=== PATIENT | female | born 1975 | race Caucasian/White ===

== ENCOUNTER → 2017-11-19 14:25 | Outpatient (REF) | payer OTHER, SELFPAY ==
[2017-11-19 18:38] LABS: Basophils # 0.1 K/mm3 (0-0.2); Basophils % 0.9 % (0.1-2.0); Eosinophils # 0.1 K/mm3 (0.0-0.4); Hematocrit 34.7 % (37.0-47.0); Lymphocytes # 1.8 K/mm3 (0.7-4.5); Lymphocytes % 30.2 K/mm3 (10-50); Mean Corpuscular Hemoglobin 21.9 pg (27.0-31.2); Mean Corpuscular Volume 75.5 fl (81-99); Mean Platelet Volume 7.7 fl (7.4-10.4); Monocytes # 0.3 K/mm3 (0.1-1.0); Monocytes % 4.5 % (1.7-9.3); Neutrophils # 3.7 K/mm3 (1.8-7.8); Neutrophils % 62.5 % (37.0-80.0); Platelet Count 392 K/mm3 (142-424); Red Blood Count 4.59 M/mm3 (4.20-5.40); Red Cell Distribution Width 15.9 % (11.5-17.5); White Blood Count 5.9 K/mm3 (4.8-10.8)
[2017-11-19 19:21] LABS: Alanine Aminotransferase 16 U/L (12-78); Albumin Level 3.5 gm/dL (3.4-5.0); Alkaline Phosphatase 100 U/L (46-116); Anion Gap 5.4 mEq/L (5-15); Aspartate Amino Transferase 12 U/L (15-37); Blood Urea Nitrogen 10 mg/dL (7-18); Calcium 8.9 mg/dL (8.5-10.1); Carbon Dioxide 27 mmol/L (21.0-32.0); Chloride 104 mmol/L (98-107); Chol/HDL Ratio 5.4 (1-3.5); Cholesterol 241 mg/dL (140-200); Creatinine,Serum 0.67 mg/dL (0.55-1.02); Estimated Glomerular Filt Rate 97 ml/min (>60); GFR (African American) 117 ML/MIN (>60); Globulin 3.4 gm/dl (1.3-3.2); Glucose 101 mg/dL (74-106); HDL Cholesterol 45 mg/dL (29-89); LDL Cholesterol 175 mg/dL (0-130); Potassium 4.4 mmoL/L (3.5-5.1); Sodium 132 mmol/L (136-145); T4 (Thyroxine) 8.2 ug/dl (4.7-13.3); Thyroid Stimulating Hormone 0.97 uIU/ml (0.358-3.740); Total Protein,Serum 6.9 gm/dL (6.4-8.2); Triglycerides 107 mg/dL (30-200); VLDL Cholesterol 21 mg/dL (0-40)
[2017-11-21 09:33] LABS: Vitamin B12 397 pg/mL (232-1245); Vitamin D 25 Hydroxy 16.8 ng/mL (30.0-100.0)
== END ==
LOC: LAB 14:25
PROVIDERS: Visit Provider Physician Assistant
DX: R53.83 Other fatigue (principal)
CPT/HCPCS: 80053; 80061; 82607; 82652; 84436; 84443; 85025

== ENCOUNTER → 2018-01-13 14:03 | Outpatient (REF) | payer OTHER, SELFPAY | LOC: LAB 14:03 | PROVIDERS: Visit Provider Nurse Practitioner Family | DX: N39.0 Urinary tract infection, site not specified (principal) | CPT/HCPCS: 87086 ==

== ENCOUNTER 2018-02-21 06:51 | Day surgery (SDC) | payer OTHER, SELFPAY ==
[2018-02-20 15:23] VITALS: BMI 28.7
[2018-02-21 07:28] VITALS: BP 129/73; PULSE 92; RESP 20; TEMP 36.6; O2SAT 98
[2018-02-21 07:37] LABS: Basophils % 0.7 % (0.1-2.0); Eosinophils # 0.2 K/mm3 (0.0-0.4); Eosinophils % 3.8 % (0.1-12.0); Lymphocytes # 1.3 K/mm3 (0.7-4.5); Lymphocytes % 31.1 K/mm3 (10-50); Mean Corpuscular HGB Conc 27.9 g/dL (31.8-35.4); Mean Corpuscular Hemoglobin 20.2 pg (27.0-31.2); Mean Corpuscular Volume 72.3 fl (81-99); Mean Platelet Volume 7.5 fl (7.4-10.4); Monocytes # 0.2 K/mm3 (0.1-1.0); Monocytes % 5.1 % (1.7-9.3); Neutrophils # 2.5 K/mm3 (1.8-7.8); Neutrophils % 59.3 % (37.0-80.0); Platelet Count 300 K/mm3 (142-424); White Blood Count 4.1 K/mm3 (4.8-10.8)
[2018-02-21 07:37] LABS: Urine Pregnancy, HCG Qual. Negative (Negative)
--- NOTE | 2018-02-21 07:38 | PC.NURSE ---
pt surgery cancelled by Dr Dinh due to pt not having proper test run prior to today. pt had echo and stress test ordered by Dr Locke and did not get the test done. will reschedule after pt has test run. removed iv and applied 2x2 s and coban to site. pt stable. labs drawn during iv stick sent to lab
[2018-02-21 07:41] LABS: Anion Gap 10.8 mEq/L (5-15); Blood Urea Nitrogen 10 mg/dL (7-18); Calcium 8.2 mg/dL (8.5-10.1); Carbon Dioxide 25 mmol/L (21.0-32.0); Chloride 105 mmol/L (98-107); Creatinine Clearance Estimated 155 mL/min (0-300); Creatinine,Serum 0.64 mg/dL (0.55-1.02); Estimated Glomerular Filt Rate 102 ml/min (>60); GFR (African American) 123 ML/MIN (>60); Glucose 111 mg/dL (74-106); Potassium 3.8 mmoL/L (3.5-5.1); Sodium 137 mmol/L (136-145)
[2018-02-21 07:54] LABS: Hematocrit 32.6 % (37.0-47.0); Hemoglobin 9.1 g/dL (12.2-16.2)
== END 2018-02-21 08:40 | disposition home or self-care (01) ==
PROVIDERS: Family Provider Physician Assistant; PCP Physician Assistant; Visit Provider Surgery
PROC: 0WQF4ZZ Repair Abdominal Wall, Percutaneous Endoscopic Approach (ICD-10-PCS; principal; 2018-02-21 08:30)
DX: Z53.8 Procedure and treatment not carried out for other reasons (principal)
CPT/HCPCS: 80048; 81025; 85025

== ENCOUNTER 2020-06-07 18:52 | Observation (INO) | payer OTHER, SELFPAY ==
[2020-06-07 18:57] VITALS: BP 133/85; PULSE 86; RESP 15; TEMP 36.9; O2SAT 98; BMI 22.0
--- NOTE | 2020-06-07 19:08 | CT_ITS ---
PROCEDURE: CT ABDOMEN PELVIS WO CON CLINICAL INDICATION: nausea vomiting COMPARISON: CT ABDPELW/O CT ABD PELVIS W/O CONTRAST from 02/05/2017 TECHNIQUE: Axial images obtained with sagittal and coronal reformats. All CT scans at the facility use one or more dose reduction, viz: automated exposure control, ma/kV adjustment per patient size (including targeted exams where dose is matched to indication, i.e. head), or iterative reconstruction technique. FINDINGS: LOWER THORAX: There are atelectatic changes in the left lung base medially. There may be a small hiatal hernia. ABDOMEN & PELVIS: The liver, spleen, adrenal glands, pancreas, and kidneys have an unremarkable unenhanced appearance. No evidence of appendicitis. No intestinal obstruction or free air. Trace amount fluid is present in the pelvis. There is no intestinal obstruction or free air. There is mild thickening of the colon. No obvious pelvic mass. No acute bony findings. IMPRESSION: 1. Mild thickening of the colon throughout which could be due to mild colitis versus nondistention. 2. Mild left basilar atelectasis with possible small hiatal hernia Dictated by: Leonard Goodman MD 06/08/2020 06:07 Leonard Goodman MD in [place] 06/08/2020 06:07
--- NOTE | 2020-06-07 19:19 | HMH.EDABDPAI ---
ED Disposition Condition on Discharge: Good - Critical Care Critical Care Time: No <EricksonizabelaChevy - Last Filed: 06/07/20 19:40> <Jason Frazier - Last Filed: 06/07/20 22:55> Clinical Impression: Dyspepsia Nausea & vomiting Qualifiers: Vomiting type: unspecified Vomiting Intractability: non-intractable Qualified Code(s): R11.2 - Nausea with vomiting, unspecified Abdominal pain Qualifiers: Abdominal location: epigastric Qualified Code(s): R10.13 - Epigastric pain Disposition: Admitted as Observation Attestation: On 06/07/20, the high probability of a clinically significant, sudden or life threatening deterioration of the following system(s) required my full and direct attention, intervention and personal management. The time I documented below is in addition to time spent performing reported procedures but includes the following listed in this critical care notation. Medical Decision Making - Medical Records Medical records reviewed: Yes: I reviewed the patient's medical records. - Dilan Inquiry Pt receiving controlled substance: No - Lab Data Result diagrams: 06/07/20 18:50 06/07/20 18:50 - Reevaluation(s) Time: 19:41 <Chevy Owen - Last Filed: 06/07/20 19:40> - Lab Data Lab results reviewed: Yes: I reviewed the patient's lab results. Result diagrams: 06/07/20 18:50 06/07/20 18:50 - CT Data CT Scan: Abdomen, Pelvis Time Received: 22:[address] Reviewed: Yes: I have viewed the radiologist's interpretation Preliminary Findings: Abnormal (see report ) - Physician Consults Physician Consulted: anders Reason -: Admission <Jason Frazier - Last Filed: 06/07/20 22:55> Vital Signs: 06/07/20 18:57 06/07/20 21:32 Temperature 98.4 F 98.3 F Temperature Source Oral Oral Pulse Rate [Right Radial] 86 90 Respiratory Rate 15 Blood Pressure [Right Arm] 133/85 Blood Pressure Mean [Right Arm] 101 02 Sat by Pulse Oximetry 98 97 Oxygen Delivery Method Room Air Room Air - Lab Data Lab Results 06/07/20 18:50: WBC 9.2, RBC 4.47, Hgb 13.6, Hct 42.5, MCV 95.1, MCH 30.5, MCHC 32.0, RDW 13.8, Plt Count 287, MPV 7.3 L, Neut % (Auto) 87.1 H, Lymph % (Auto) 8.2 L, [place] % (Auto) 4.3, Eos % (Auto) 0.4, Baso % (Auto) 0.1, Neut # (Auto) 8.0 H, Lymph # (Auto) 0.8, [place] # (Auto) 0.4, Eos # (Auto) 0.0, Baso # (Auto) 0.0, Total Counted 100, Neutrophils % (Manual) 90 H, Lymphocytes % (Manual) 7 L, Monocytes % (Manual) 3, Platelet Estimate Normal, RBC Morphology Normal 06/07/20 18:50: Sodium 139, Potassium 3.6, Chloride 104, Carbon Dioxide 28, Anion Gap 10.6, BUN 12, Creatinine 0.60, Estimated Creat Clear 124, Estimated GFR 109, Est GFR ( Amer) 131, Glucose 134 H, Calcium 9.1, Total Bilirubin 0.4, AST 30, ALT 20, Alkaline Phosphatase 66, Total Protein 7.0, Albumin 4.0, Globulin 3.0, Albumin/Globulin Ratio 1.3, Lipase 30 06/07/20 18:50: ESR 17 06/07/20 18:50: C-Reactive Protein 2.4 06/07/20 18:50: Amylase 61, Lipase 29 06/07/20 21:42: Urine Color Dark yellow, Urine Appearance Clear, Urine pH 7.0, Ur Specific [place] 1.025, Urine Protein 1+, Urine Glucose (UA) Negative, Urine Ketones 2+, Urine Blood 3+, Urine Nitrate Negative, Urine Bilirubin Negative, Urine Urobilinogen 0.2, Ur Leukocyte Esterase Negative, Urine RBC 20-50, Urine WBC 3-5, Ur Squamous Epith Cells 3-5, Amorphous Sediment 1+, Urine Bacteria 1+, Urine Mucus 1+ 06/07/20 21:42: Urine HCG, Qual Negative Orders (Tests/Meds): ED MEDICATIONS Generic Name Dose Route Start Last Admin Trade Name Freq PRN Reason Stop Dose Admin Sodium Chloride 1,000 mls @ 999 mls/hr 06/07/20 21:30 06/07/20 21:30 Sod Chlor 0.9% 1000ml Bag IV 06/07/20 22:30 999 mls/hr .Q1H1M ARUN Administration Sodium Chloride 8 ml 06/07/20 21:49 Sodium Chloride 0.9% 10ml Vial IV 07/07/20 21:48 NEEDED PRN dilute pepcid Discontinued Medications Generic Name Dose Route Start Last Admin Trade Name Freq PRN Reason Stop Dose Admin Fam
[2020-06-07 19:26] LABS: Alanine Aminotransferase 20 U/L (12-78); Albumin/Globulin Ratio 1.3 (1.1-1.8); Alkaline Phosphatase 66 U/L (38-126); Anion Gap 10.6 mEq/L (5-15); Aspartate Amino Transferase 30 U/L (14-36); Bilirubin,Total 0.4 mg/dl (0.2-1.3); Blood Urea Nitrogen 12 mg/dl (7-17); Calcium 9.1 mg/dl (8.4-10.2); Carbon Dioxide 28 mmol/L (22.0-30.0); Chloride 104 mmol/L (98-107); Creatinine Clearance Estimated 124 mL/min (50-200); Estimated Glomerular Filt Rate 109 ml/min (>60); GFR (African American) 131 ML/MIN (>60); Glucose 134 mg/dl (74-100); Lipase 30 U/L (23-300); Potassium 3.6 mmoL/L (3.5-5.1); Sodium 139 mmol/L (136-145)
[2020-06-07 19:31] LABS: Basophils % 0.1 % (0.1-2.0); Eosinophils % 0.4 % (0.1-12.0); Hematocrit 42.5 % (37.0-47.0); Hemoglobin 13.6 g/dL (12.2-16.2); Lymphocytes # 0.8 K/mm3 (0.7-4.5); Lymphocytes % 8.2 % (10-50); Mean Corpuscular Hemoglobin 30.5 pg (27.0-31.2); Mean Corpuscular Volume 95.1 fl (81-99); Mean Platelet Volume 7.3 fl (7.4-10.4); Monocytes # 0.4 K/mm3 (0.1-1.0); Monocytes % 4.3 % (1.7-9.3); Neutrophils % 87.1 % (37.0-80.0); Platelet Count 287 K/mm3 (142-424); Red Blood Count 4.47 M/mm3 (4.20-5.40); Red Cell Distribution Width 13.8 % (11.5-17.5); White Blood Count 9.2 K/mm3 (4.8-10.8)
[2020-06-07 19:37] LABS: MANUAL DIFFERENTIAL MANUAL DIFFERENTIAL (MANUAL DIFF)
[2020-06-07 19:49] LABS: Lymphocytes % 7 % (10-50); Monocytes % 3 % (2-9); Neutrophils % 90 % (42-76); Platelet Estimate Normal; RBC Morphology Normal; Total Cells Counted 100
[2020-06-07 21:32] VITALS: PULSE 90; TEMP 36.8; O2SAT 97
[2020-06-07 21:39] LABS: C-Reactive Protein 2.4 mg/L (0-4)
[2020-06-07 21:44] LABS: Microscopic, Urine URINE MICROSCOPIC (MICROSCOPIC)
[2020-06-07 21:48] LABS: Erythrocyte Sedimentation Rate 17 mm/hr (0-20)
[2020-06-07 21:55] LABS: Appearance,Urine CLEAR (Clear); Blood, Urine 3+ (Negative); Glucose,Urine (UA) Negative (Negative); Ketones,Urine 2+ (Negative); Leukocyte Esterase,Urine Negative (Negative); Nitrate,Urine Negative (Negative); Protein,Urine 1+ (Negative); Specific Gravity, Urine 1.025 (1.005-1.030); Urobilinogen,Urine 0.2 EU/dl (0.2)
[2020-06-07 21:57] LABS: Bilirubin,Urine Negative (Negative); Color,Urine Dark Yellow (Yellow); Urine Pregnancy, HCG Qual. Negative (Negative)
[2020-06-07 22:01] LABS: Amorphous Sediment,Urine 1+ /lpf; Bacteria,Urine 1+ /lpf; Mucus,Urine 1+ /lpf; RBC,Urine 20-50 #/hpf (0-3)
--- NOTE | 2020-06-07 22:04 | PC.NURSE ---
pt mother and sister called to talk to pt. pt stated she would call them later and that she didnt feel like talking at the moment.
[2020-06-07 22:05] LABS: Amylase 61 U/L (30-110); Lipase 29 U/L (23-300)
--- NOTE | 2020-06-07 22:32 | PC.NURSE ---
Dr Frazier speaking with Dr Willams for admission
[2020-06-07 23:06] LABS: Coronavirus 19 IgG Antibody Negative (Negative); Coronavirus 19 IgM Antibody Negative (Negative)
[2020-06-07 23:30] VITALS: BP 141/99; PULSE 92; RESP 16; O2SAT 94
--- NOTE | 2020-06-08 00:03 | PC.NURSE ---
attempted to call report to MICHELINE Watson
--- NOTE | 2020-06-08 00:09 | PC.NURSE ---
report called to MICHELINE Dean
--- NOTE | 2020-06-08 00:17 | PC.NURSE ---
PT ARRIVED TO THE FLOOR VIA W/C FROM ER W/STAFF AT 0017
[2020-06-08 00:20] VITALS: BP 136/89; PULSE 89; RESP 18; TEMP 36.9; O2SAT 96
[2020-06-08 00:25] VITALS: BP 137/86; PULSE 90; RESP 16; TEMP 36.7; O2SAT 94
--- NOTE | 2020-06-08 00:47 | PC.NURSE ---
Pt noted very lethargic upon arriving to unit. Pt alert and oriented x4. Pt noted to keep falling asleep when asked questions. Will attempt to complete admission in am when pt able to answer questions appropriately.
[2020-06-08 00:49] VITALS: BMI 23.8
[2020-06-08 03:51] VITALS: BP 134/84; PULSE 80; RESP 20; TEMP 36.7; O2SAT 96
--- NOTE | 2020-06-08 04:42 | PC.NURSE ---
Pt is alert and oriented x4. Pt has rested well with eyes closed this shift. Pt noted to be very lethargic, answers questions appropriately when woken but immediately falls back to sleep. When pt is woken up for care, she states she is nauseous and is very sick . She also states she just needs phenergan . When this RN attempts to ask further questions pt quickly goes back to sleep. Pt denies nausea when resting with eyes closed. Administered Zofran x1 per MAR for c/o nausea. Upon reassessment pt noted resting with eyes closed with no further complaints. Abdomen tender upon palpation. Hypoactive bowel sounds noted in all 4 quads. Pt has not yet voided or had a BM since arriving to the unit from ER. This RN asked pt is she felt the urge to void, pt denies. Bilateral lungs noted clear t/o. Tolerates RA well with no c/o SOA. Bilateral hand fish tender noted equal and strong. Cap refill < 3 seconds. Refused TEDS. VSS. Remains NPO. Call light within reach. Remains safe. Will continue to monitor.
[2020-06-08 05:00] VITALS: BMI 23.0
[2020-06-08 07:22] LABS: Basophils % 0.1 % (0.1-2.0); Eosinophils % 0.1 % (0.1-12.0); Hemoglobin 13.5 g/dL (12.2-16.2); Lymphocytes # 0.5 K/mm3 (0.7-4.5); Lymphocytes % 5.9 % (10-50); Mean Corpuscular HGB Conc 32.1 g/dL (31.8-35.4); Mean Corpuscular Hemoglobin 30.5 pg (27.0-31.2); Mean Corpuscular Volume 95.1 fl (81-99); Mean Platelet Volume 7.4 fl (7.4-10.4); Monocytes # 0.2 K/mm3 (0.1-1.0); Monocytes % 2.9 % (1.7-9.3); Neutrophils # 7.7 K/mm3 (1.8-7.8); Platelet Count 274 K/mm3 (142-424); Red Blood Count 4.42 M/mm3 (4.20-5.40); Red Cell Distribution Width 14.1 % (11.5-17.5); White Blood Count 8.5 K/mm3 (4.8-10.8)
[2020-06-08 07:24] LABS: Chloride 108 mmol/L (98-107); Potassium 3.6 mmoL/L (3.5-5.1); Sodium 139 mmol/L (136-145)
[2020-06-08 07:27] LABS: Anion Gap 11.6 mEq/L (5-15); Blood Urea Nitrogen 14 mg/dl (7-17); Carbon Dioxide 23 mmol/L (22.0-30.0); Creatinine Clearance Estimated 112 mL/min (50-200); Estimated Glomerular Filt Rate 91 ml/min (>60); GFR (African American) 110 ML/MIN (>60)
[2020-06-08 07:28] LABS: Calcium 8.6 mg/dl (8.4-10.2); Glucose 150 mg/dl (74-100); MANUAL DIFFERENTIAL MANUAL DIFFERENTIAL (MANUAL DIFF); Magnesium 1.6 mg/dl (1.6-2.3)
--- NOTE | 2020-06-08 07:28 | HMH.PHAVTE ---
[facility] Pharmacy VTE Monitoring - Patient Demographics Admission date: 06/07/20 Report Date: 06/08/20 Time: 07:28 Allergies/Adverse Reactions: Patient Allergies amoxicillin Allergy (Intermediate, Verified 11/10/19 15:08) I-RASH azithromycin Allergy (Intermediate, Verified 11/10/19 15:08) I-RASH doxycycline Allergy (Intermediate, Verified 11/10/19 15:08) I-RASH Penicillins Allergy (Intermediate, Verified 11/10/19 15:08) I-RASH codeine [CODEINE] Allergy (Unknown, Verified 11/10/19 15:08) Height: 1.73 m Weight: 68.946 kg Patient Problems: Current Active Problems (Last Updated 11/25/17 @ 13:13 by HÉCTOR Berry) Dyspepsia (Acute) Nausea & vomiting (Acute) Abdominal pain (Acute) - VTE Risk Labs: VTE Related Lab Results Hgb 13.5 g/dL (12.2-16.2) 06/08/20 06:25 Hct 42.0 % (37.0-47.0) 06/08/20 06:25 Plt Count 274 K/mm3 (142-424) 06/08/20 06:25 BUN 14 mg/dl (7-17) 06/08/20 06:25 Creatinine 0.70 mg/dl (0.52-1.04) 06/08/20 06:25 Estimated Creat Clear 112 mL/min (50-200) 06/08/20 06:25 Was VTE Risk Assessment Performed: Yes VTE Score: 3 VTE Risk Level: Low Risk - Prophylaxis VTE Prophylaxis Ordered?: Yes Types of VTE Prophylaxis: TEDS Knee High Location of Applied Device: Bilateral Lower Extremeties
[2020-06-08 08:00] VITALS: BP 140/74; PULSE 84; RESP 16; TEMP 36.8; O2SAT 98
--- NOTE | 2020-06-08 08:00 | HMH.PHAINT ---
MEDICATION RECONCILIATION COMPLETED ON PATIENT USING EXTERNAL FILL HISTORY FROM PHARMACY. -FARIHA BRAVO, CLAUDED
[2020-06-08 08:43] LABS: Lymphocytes % 5 % (10-50); Neutrophils % 95 % (42-76); Platelet Estimate Normal; RBC Morphology Normal; Total Cells Counted 100
--- NOTE | 2020-06-08 08:54 | HMH.HPDC ---
General - General Admission date:: 06/08/20 Discharge date: 06/08/20 *Admission Date: 06/07/20 *Chief complaint: Nausea vomiting and abdominal pain *History of present illness: Ms. Mckeon is a 45-year old patient with a history of documented GERD. She presented to the emergency room with persistent vomiting and retching for the past 3 days. She stated that she was unable to keep food down. She denied diarrhea. She denied any hematemesis, hematuria, and hematochezia. She denied any upper respiratory symptoms and fever. With evaluation in the emergency room CT of the abdomen revealed mild thickening of the colon throughout possibly due to mild colitis versus nondistention and mild left basilar atelectasis with possible small hiatal hernia. Laboratory data revealed a normal white blood cell count, normal electrolytes and renal function. Liver function studies were also all normal. Amylase was 61 with a lipase of 29. Patient was given IVF bolus, famotidine, Toradol, 125mg of Solu-Medrol, Zofran, Reglan, and promethazine. Initially patient felt better and vomiting had resolved. She had tolerated oral intake, But was then admitted For further evaluation and treatment. [facility] History Medical History: Reports:: Anxiety, Chronic Obstructive Pulmonary Disease (COPD), Depression Denies:: Cancer, Diabetes Mellitus Type 1, Diabetes Mellitus Type 2, Internal Pacemaker, MRSA, Seizures *Have you ever received a pneumonia vaccine?: No *Have you received a flu vaccine this season?: No Other Medical History: Reports: Liver Disease, Other. Denies: Blood Transfusion Reaction Other Surgeries: Yes: , Tubal Ligation, Other. No: Pacemaker Amputation: No Fractures: Yes - *Social History Last grade of school completed: 11th or 12th Smoking Status: Current every day smoker Tobacco Type: cigarettes # Packs/Day (cigarettes): 1 Alcohol Intake: former Alcohol Intake Frequency:: holidays/special occasions only Substance Use Type: denies use *Occupational Status:: unemployed Housing: apartment Household Members: children *Travel in the last 8 weeks: None - Psychiatric History Pschychiatric History:: Reports:: Anxiety, Depression Family Hx:: Coronary Artery Disease, Heart Attack Review of Systems - Constitutional Denies headache(s) - Eyes Denies change in vision - ENT Denies ear pain, Denies sore throat - *Cardiovascular Denies chest pain - *Respiratory Denies cough, Denies shortness of breath - *Gastrointestinal Reports abdominal pain, Reports nausea, Reports vomiting, Denies change in bowel habits, Denies constipation, Denies heartburn - *Genitourinary Denies difficulty urinating - *Musculoskeletal Denies joint pain - *Neurologic Denies headache(s) - Psychiatric Reports anxiety, Reports depression Exam Vital signs and Labs for Last 24 Hours: Temp Pulse Resp BP Pulse Ox 98.1 F 80 20 134/84 96 06/08/20 03:51 06/08/20 03:51 06/08/20 03:51 06/08/20 03:51 06/08/20 03:51 Laboratory Results - last 24 hr 06/07/20 18:50: WBC 9.2, RBC 4.47, Hgb 13.6, Hct 42.5, MCV 95.1, MCH 30.5, MCHC 32.0, RDW 13.8, Plt Count 287, MPV 7.3 L, Neut % (Auto) 87.1 H, Lymph % (Auto) 8.2 L, [place] % (Auto) 4.3, Eos % (Auto) 0.4, Baso % (Auto) 0.1, Neut # (Auto) 8.0 H, Lymph # (Auto) 0.8, [place] # (Auto) 0.4, Eos # (Auto) 0.0, Baso # (Auto) 0.0, Total Counted 100, Neutrophils % (Manual) 90 H, Lymphocytes % (Manual) 7 L, Monocytes % (Manual) 3, Platelet Estimate Normal, RBC Morphology Normal 06/07/20 18:50: Sodium 139, Potassium 3.6, Chloride 104, Carbon Dioxide 28, Anion Gap 10.6, BUN 12, Creatinine 0.60, Estimated Creat Clear 124, Estimated GFR 109, Est GFR ( Amer) 131, Glucose 134 H, Calcium 9.1, Total Bilirubin 0.4, AST 30, ALT 20, Alkaline Phosphatase 66, Total Protein 7.0, Albumin 4.0, Globulin 3.0, Albumin/Globulin Ratio 1.3, Lipase 30 06/07/20 18:50: ESR 17 06/07/20 18:50: C-Reactive Protein 2.4 06/07/20 18:50: A
--- NOTE | 2020-06-08 09:19 | PC.NURSE ---
Pt left ama at 0850.
--- NOTE | 2020-06-08 12:18 | PC.NURSE ---
0849- Dr Willams at bedside assessing patient. Patient states she doesnt want to be admitted any longer and wishes to go home. She states she will not stay to be discharged. She states her ride is already here and waiting for her in the parking lot. Dr Willams explains the importance of continuing to receive medical care for her abdominal pain but patient declined and states she would like to leave against medical advice. AMA paperwork provided and explained to patient, patient signed AMA form, PIV discontinued, educated patient that if she changes her mind and needs medical attention she may return to the hospital at any time. Patient verbalized understanding. Left floor at 0849.
== END 2020-06-08 08:49 | disposition left against medical advice (07) ==
LOC: ER 19:42 → 2ND 22:55
PROVIDERS: Emergency Medicine; Admitting Provider Family Medicine; Emergency Provider Emergency Medicine; PCP Nurse Practitioner Family; Visit Provider Family Medicine
DX: R10.9 Unspecified abdominal pain (principal); R11.2 Nausea with vomiting, unspecified; R45.1 Restlessness and agitation; R10.13 Epigastric pain; Z72.0 Tobacco use; J44.9 Chronic obstructive pulmonary disease, unspecified; Z88.0 Allergy status to penicillin; Z88.1 Allergy status to other antibiotic agents; Z88.5 Allergy status to narcotic agent; Z79.899 Other long term (current) drug therapy
CPT/HCPCS: 36415; 74176; 80048; 80053; 81001; 81025; 82150; 83690; 83735; 85007; 85025; 85651; 86140; 86328; 96365; 96375; 99284; G0378; J2405

== ENCOUNTER 2020-06-09 14:51 | Emergency (ER) | payer OTHER, SELFPAY ==
[2020-06-09 14:52] VITALS: BP 160/95; PULSE 91; RESP 17; TEMP 36.5; O2SAT 100; BMI 22.0
--- NOTE | 2020-06-09 14:53 | XR_ITS ---
PROCEDURE: XR ACUTE ABDOMEN SERIES CLINICAL INDICATION: epigastric pain Epigastric pain with nausea and vomiting COMPARISON: CT CT ABDOMEN PELVIS WO CON from 06/07/2020 FINDINGS: Frontal view of the chest shows no acute finding. Upright and supine views of the abdomen demonstrates a nonspecific bowel gas pattern. There is a mild amount of retained colonic feces in the right colon. No intestinal obstruction or free air. There are multiple pelvic phleboliths. No acute bony findings. Other findings:None. IMPRESSION: No acute findings. Dictated by: Leonard Goodman MD 06/09/2020 16:09 Leonard Goodman MD in [place] 06/09/2020 16:09
--- NOTE | 2020-06-09 14:55 | HMH.EDGENADL ---
ED Disposition Clinical Impression: Gastroenteritis Disposition: Home, Self-Care Condition on Discharge: Good Instructions: DI for Acute Abdomen Additional Instructions: You have been evaluated for abdominal pain, nausea. Please take omeprazole. Use Carafate. Take Phenergan for nausea. Follow-up with your primary care doctor. You should see gastroenterology as an outpatient. Return to the emergency department for any new or worsening pain or other symptoms. Prescriptions: Sucralfate [Carafate 1gm/10mL Susp] 1 gm PO DAILY PRN #10 g PRN Reason: Indigestion Transmission Status: Received by [facility] Omeprazole [Omeprazole 20mg Tab] 20 mg PO DAILY #30 tab Transmission Status: Received by [facility] Promethazine HCl [Phenergan 12.5mg tablet] 12.5 mg PO Q6H PRN #6 tab PRN Reason: Nausea Transmission Status: Received by [facility] Referrals: Elizabeth Bauer [Primary Care Provider] - Time of Disposition: 16:54 - Critical Care Critical Care Time: No Attestation: On 06/09/20, the high probability of a clinically significant, sudden or life threatening deterioration of the following system(s) required my full and direct attention, intervention and personal management. The time I documented below is in addition to time spent performing reported procedures but includes the following listed in this critical care notation. Medical Decision Making - Medical Records Medical records reviewed: Yes: I reviewed the patient's medical records. - Dilan Inquiry Pt receiving controlled substance: No Vital Signs: 06/09/20 14:52 06/09/20 15:41 06/09/20 16:28 Temperature 97.7 F Temperature Source Oral Pulse Rate Pulse Rate [Right Brachial] 91 H 70 76 Respiratory Rate 17 14 Blood Pressure Blood Pressure [Right Arm] 160/95 H 157/85 H 152/95 H Blood Pressure Mean [Right Arm] 116 109 114 Blood Pressure Source [Right Arm] Automatic Cuff Automatic Cuff Automatic Cuff Blood Pressure Position Blood Pressure Position [Right Arm] Sitting Sitting Sitting 02 Sat by Pulse Oximetry 100 100 100 Oxygen Delivery Method Room Air Room Air Room Air 06/09/20 18:09 Temperature 98 F Temperature Source Oral Pulse Rate 87 Pulse Rate [Right Brachial] Respiratory Rate 15 Blood Pressure 115/74 Blood Pressure [Right Arm] Blood Pressure Mean [Right Arm] Blood Pressure Source [Right Arm] Blood Pressure Position Sitting Blood Pressure Position [Right Arm] 02 Sat by Pulse Oximetry Oxygen Delivery Method Room Air - Lab Data Lab Results 06/09/20 14:10: WBC 10.0, RBC 4.85, Hgb 14.1, Hct 45.6, MCV 94.0, MCH 29.1, MCHC 31.0 L, RDW 14.3, Plt Count 284, MPV 7.7, Neut % (Auto) 87.2 H, Lymph % (Auto) 8.4 L, [place] % (Auto) 4.2, Eos % (Auto) 0.0 L, Baso % (Auto) 0.2, Neut # (Auto) 8.7 H, Lymph # (Auto) 0.8, [place] # (Auto) 0.4, Eos # (Auto) 0.0, Baso # (Auto) 0.0, Total Counted 100, Neutrophils % (Manual) 93 H, Lymphocytes % (Manual) 6 L, Monocytes % (Manual) 1 L, Platelet Estimate Normal, RBC Morphology Normal 06/09/20 14:10: Sodium 141, Potassium 3.6, Chloride 106, Carbon Dioxide 26, Anion Gap 12.6, BUN 17, Creatinine 0.80, Estimated Creat Clear 93, Estimated GFR 78, Est GFR ( Amer) 94, Glucose 120 H, Calcium 9.0, Total Bilirubin 0.4, AST 28, ALT 18, Alkaline Phosphatase 57, Total Protein 7.4, Albumin 4.5, Globulin 2.9, Albumin/Globulin Ratio 1.6, Lipase 80 06/09/20 15:06: Lactate 1.3 Result diagrams: 06/09/20 14:10 06/09/20 14:10 Orders (Tests/Meds): ED MEDICATIONS Discontinued Medications Generic Name Dose Route Start Last Admin Trade Name Freq PRN Reason Stop Dose Admin Belladonna Alkaloids 60 ml 06/09/20 14:53 06/09/20 15:05 Gi Cocktail 60ml Udc PO 06/09/20 14:54 60 ml ONCE ONE Administration Promethazine HCl 12.5 mg 06/09/20 14:53 06/09/20 15:04 Promethazine Hcl 25mg/Ml 1ml Vial IV 06/09/20 14:54 12.5 mg ONCE ONE Administration Promethazine HCl 12.5 mg 1
[2020-06-09 15:09] LABS: Basophils % 0.2 % (0.1-2.0); Hematocrit 45.6 % (37.0-47.0); Hemoglobin 14.1 g/dL (12.2-16.2); Lymphocytes # 0.8 K/mm3 (0.7-4.5); Lymphocytes % 8.4 % (10-50); Mean Corpuscular Hemoglobin 29.1 pg (27.0-31.2); Mean Platelet Volume 7.7 fl (7.4-10.4); Monocytes # 0.4 K/mm3 (0.1-1.0); Monocytes % 4.2 % (1.7-9.3); Neutrophils # 8.7 K/mm3 (1.8-7.8); Neutrophils % 87.2 % (37.0-80.0); Platelet Count 284 K/mm3 (142-424); Red Blood Count 4.85 M/mm3 (4.20-5.40); Red Cell Distribution Width 14.3 % (11.5-17.5)
[2020-06-09 15:13] LABS: MANUAL DIFFERENTIAL MANUAL DIFFERENTIAL (MANUAL DIFF)
[2020-06-09 15:14] LABS: Chloride 106 mmol/L (98-107); Potassium 3.6 mmoL/L (3.5-5.1); Sodium 141 mmol/L (136-145)
[2020-06-09 15:16] LABS: Alanine Aminotransferase 18 U/L (12-78); Aspartate Amino Transferase 28 U/L (14-36); Blood Urea Nitrogen 17 mg/dl (7-17); Creatinine Clearance Estimated 93 mL/min (50-200); Estimated Glomerular Filt Rate 78 ml/min (>60); GFR (African American) 94 ML/MIN (>60)
[2020-06-09 15:17] LABS: Albumin Level 4.5 g/dl (3.5-5.0); Albumin/Globulin Ratio 1.6 (1.1-1.8); Alkaline Phosphatase 57 U/L (38-126); Anion Gap 12.6 mEq/L (5-15); Bilirubin,Total 0.4 mg/dl (0.2-1.3); Carbon Dioxide 26 mmol/L (22.0-30.0); Globulin 2.9 g/dL (1.3-3.2); Glucose 120 mg/dl (74-100); Lipase 80 U/L (23-300); Total Protein,Serum 7.4 g/dl (6.3-8.2)
[2020-06-09 15:20] LABS: Lymphocytes % 6 % (10-50); Monocytes % 1 % (2-9); Neutrophils % 93 % (42-76); Platelet Estimate Normal; RBC Morphology Normal; Total Cells Counted 100
[2020-06-09 15:33] LABS: Lactic Acid 1.3 mmol/L (0.7-2.1)
[2020-06-09 15:41] VITALS: BP 157/85; PULSE 70; RESP 14; O2SAT 100
[2020-06-09 16:28] VITALS: BP 152/95; PULSE 76; O2SAT 100
[2020-06-09 18:09] VITALS: BP 115/74; PULSE 87; RESP 15; TEMP 36.6; O2SAT 98
== END 2020-06-09 18:11 | disposition home or self-care (01) ==
PROVIDERS: Emergency Provider Emergency Medicine; PCP Nurse Practitioner Family
DX: R10.12 Left upper quadrant pain (principal); R10.13 Epigastric pain; J44.9 Chronic obstructive pulmonary disease, unspecified; K21.9 Gastro-esophageal reflux disease without esophagitis; E55.9 Vitamin D deficiency, unspecified; Z79.899 Other long term (current) drug therapy; F17.210 Nicotine dependence, cigarettes, uncomplicated; Z88.0 Allergy status to penicillin; F41.8 Other specified anxiety disorders; Z88.5 Allergy status to narcotic agent
CPT/HCPCS: 74021; 80053; 83605; 83690; 85007; 85025; 96365; 96374; 96375; 96376; 99283

== ENCOUNTER 2020-11-16 21:30 | Emergency (ER) | payer OTHER, SELFPAY ==
[2020-11-16 21:41] VITALS: BP 183/78; PULSE 74; RESP 18; TEMP 36.6; O2SAT 98; BMI 22.0
[2020-11-16 22:00] LABS: Microscopic, Urine URINE MICROSCOPIC (MICROSCOPIC)
--- NOTE | 2020-11-16 22:03 | HMH.EDNVD ---
ED Disposition Clinical Impression: Abdominal pain Qualifiers: Abdominal location: generalized Qualified Code(s): R10.84 - Generalized abdominal pain Disposition: Home, Self-Care Condition on Discharge: Good Instructions: DI for Nausea -- Adult Additional Instructions: fluids and see pcp Referrals: Elizabeth Bauer [Primary Care Provider] - - Critical Care Critical Care Time: No Attestation: On 11/16/20, the high probability of a clinically significant, sudden or life threatening deterioration of the following system(s) required my full and direct attention, intervention and personal management. The time I documented below is in addition to time spent performing reported procedures but includes the following listed in this critical care notation. Medical Decision Making - Medical Records Medical records reviewed: Yes: I reviewed the patient's medical records. - Dilan Inquiry Pt receiving controlled substance: No Vital Signs: 11/16/20 21:41 11/16/20 22:15 11/16/20 22:57 Temperature 97.8 F 97.8 F Temperature Source Oral Oral Pulse Rate 75 Pulse Rate [Right Brachial] 74 73 Respiratory Rate 18 18 17 Blood Pressure 163/75 H Blood Pressure [Right Arm] 183/78 H 165/75 H Blood Pressure Mean [Right Arm] 113 105 Blood Pressure Source Automatic Cuff Blood Pressure Source [Right Arm] Automatic Cuff Automatic Cuff Blood Pressure Position Sitting Blood Pressure Position [Right Arm] Sitting 02 Sat by Pulse Oximetry 98 98 Oxygen Delivery Method Room Air Room Air - Lab Data Lab results reviewed: Yes: I reviewed the patient's lab results. Lab Results 11/16/20 21:40: Urine Color Dark yellow, Urine Appearance Cloudy, Urine pH 8.5, Ur Specific [place] 1.015, Urine Protein 1+, Urine Glucose (UA) Negative, Urine Ketones 1+, Urine Blood 2+, Urine Nitrate Negative, Urine Bilirubin Negative, Urine Urobilinogen 0.2, Ur Leukocyte Esterase Trace, Urine RBC 3-5, Urine WBC 3-5, Ur Squamous Epith Cells Tntc, Urine Bacteria 1+, Urine Mucus 1+ 11/16/20 21:40: Urine HCG, Qual Negative 11/16/20 21:40: Urine Opiates Screen Positive H, Urine Methadone Screen Negative, Ur Barbituates Screen Negative, Ur Phencyclidine Scrn Negative, Ur Amphetamines Screen Negative, U Benzodiazepines Scrn Negative, Urine Cocaine Screen Negative, U Marijuana (THC) Screen Negative 11/16/20 21:55: WBC 7.7, RBC 5.00, Hgb 14.6, Hct 44.7, MCV 89.4, MCH 29.2, MCHC 32.7, RDW 15.7, Plt Count 320, MPV 8.1, Neut % (Auto) 85.9 H, Lymph % (Auto) 10.5, [place] % (Auto) 1.8, Eos % (Auto) 1.1, Baso % (Auto) 0.8, Neut # (Auto) 6.6, Lymph # (Auto) 0.8, [place] # (Auto) 0.1, Eos # (Auto) 0.1, Baso # (Auto) 0.1, Total Counted 100, Neutrophils % (Manual) 92 H, Lymphocytes % (Manual) 7 L, Monocytes % (Manual) 1 L, Platelet Estimate Normal, RBC Morphology Normal, ESR 10 11/16/20 21:55: Sodium 138, Potassium 3.6, Chloride 105, Carbon Dioxide 22, Anion Gap 14.6, BUN 14, Creatinine 0.60, Estimated Creat Clear 124, Estimated GFR 109, Est GFR ( Amer) 131, Glucose 174 H, Calcium 9.5, Total Bilirubin 0.6, AST 30, ALT 20, Alkaline Phosphatase 92, C-Reactive Protein 1.9, Total Protein 7.8, Albumin 4.4, Globulin 3.4 H, Albumin/Globulin Ratio 1.3, Amylase 114 H, Lipase 84, Procalcitonin 0.036 Result diagrams: 11/16/20 21:55 11/16/20 21:55 Orders (Tests/Meds): ED MEDICATIONS Generic Name Dose Route Start Last Admin Trade Name Freq PRN Reason Stop Dose Admin Sodium Chloride 1,000 mls @ 999 mls/hr 11/16/20 21:45 11/16/20 21:45 Sod Chlor 0.9% 1000ml Bag IV 11/16/20 22:45 999 mls/hr .Q1H1M ARUN Administration Sodium Chloride 8 ml 11/16/20 22:24 Sodium Chloride 0.9% 10ml Vial IV 12/16/20 22:23 NEEDED PRN dilute pepcid Discontinued Medications Generic Name Dose Route Start Last Admin Trade Name Freq PRN Reason Stop Dose Admin Dicyclomine HCl 10 mg 11/16/20 22:33 11/16/20 22:34 Dicyclomine 20 Mg/2ml Vial IM 11/16/20 22:34 10 mg ONCE
[2020-11-16 22:15] VITALS: BP 165/75; PULSE 73; RESP 18; O2SAT 98
[2020-11-16 22:15] LABS: Basophils # 0.1 K/mm3 (0-0.2); Basophils % 0.8 % (0.1-2.0); Eosinophils # 0.1 K/mm3 (0.0-0.4); Eosinophils % 1.1 % (0.1-12.0); Hematocrit 44.7 % (37.0-47.0); Hemoglobin 14.6 g/dL (12.2-16.2); Lymphocytes # 0.8 K/mm3 (0.7-4.5); Lymphocytes % 10.5 % (10-50); Mean Corpuscular HGB Conc 32.7 g/dL (31.8-35.4); Mean Corpuscular Hemoglobin 29.2 pg (27.0-31.2); Mean Corpuscular Volume 89.4 fl (81-99); Mean Platelet Volume 8.1 fl (7.4-10.4); Monocytes # 0.1 K/mm3 (0.1-1.0); Monocytes % 1.8 % (1.7-9.3); Neutrophils # 6.6 K/mm3 (1.8-7.8); Neutrophils % 85.9 % (37.0-80.0); Platelet Count 320 K/mm3 (142-424); Red Cell Distribution Width 15.7 % (11.5-17.5); White Blood Count 7.7 K/mm3 (4.8-10.8)
[2020-11-16 22:17] LABS: Alanine Aminotransferase 20 U/L (12-78); Albumin Level 4.4 g/dl (3.5-5.0); Albumin/Globulin Ratio 1.3 (1.1-1.8); Alkaline Phosphatase 92 U/L (38-126); Amylase 114 U/L (30-110); Anion Gap 14.6 mEq/L (5-15); Aspartate Amino Transferase 30 U/L (14-36); Bilirubin,Total 0.6 mg/dl (0.2-1.3); Blood Urea Nitrogen 14 mg/dl (7-17); Calcium 9.5 mg/dl (8.4-10.2); Carbon Dioxide 22 mmol/L (22.0-30.0); Chloride 105 mmol/L (98-107); Creatinine Clearance Estimated 124 mL/min (50-200); Estimated Glomerular Filt Rate 109 ml/min (>60); GFR (African American) 131 ML/MIN (>60); Globulin 3.4 g/dL (1.3-3.2); Glucose 174 mg/dl (74-100); Lipase 84 U/L (23-300); Potassium 3.6 mmoL/L (3.5-5.1); Sodium 138 mmol/L (136-145); Total Protein,Serum 7.8 g/dl (6.3-8.2)
[2020-11-16 22:17] LABS: Blood, Urine 2+ (Negative); Glucose,Urine (UA) Negative (Negative); Ketones,Urine 1+ (Negative); Leukocyte Esterase,Urine TRACE (Negative); Nitrate,Urine Negative (Negative); PH,Urine 8.5 (5.0-8.5); Protein,Urine 1+ (Negative); Specific Gravity, Urine 1.015 (1.005-1.030); Urobilinogen,Urine 0.2 EU/dl (0.2)
[2020-11-16 22:22] LABS: C-Reactive Protein 1.9 mg/L (0-4)
[2020-11-16 22:23] LABS: Appearance,Urine Cloudy (Clear); Bilirubin,Urine Negative (Negative); Color,Urine Dark Yellow (Yellow); Urine Pregnancy, HCG Qual. Negative (Negative)
[2020-11-16 22:24] LABS: Bacteria,Urine 1+ /lpf; Mucus,Urine 1+ /lpf; Squamous Epithelial Cell,Urine TNTC #/hpf (0-5)
[2020-11-16 22:26] LABS: MANUAL DIFFERENTIAL MANUAL DIFFERENTIAL (MANUAL DIFF)
[2020-11-16 22:28] LABS: Barbiturates Screen,Urine Negative ng/ml (<200)
[2020-11-16 22:29] LABS: Amphetamine/Metha Screen,Urine Negative ng/ml (<1000); Benzodiazepines Screen,Urine Negative ng/ml (<200)
[2020-11-16 22:30] LABS: Cannabinoid Screen,Urine Negative ng/ml (<50); Cocaine Screen,Urine Negative ng/ml (<300)
[2020-11-16 22:31] LABS: Methadone Screen,Urine Negative ng/ml (<300)
[2020-11-16 22:32] LABS: Opiate Screen,Urine Positive ng/ml (<300); Phencyclidine Screen,Urine Negative ng/ml (<25)
[2020-11-16 22:36] LABS: Procalcitonin 0.036 ng/mL (0.0-2.0)
[2020-11-16 22:41] LABS: Erythrocyte Sedimentation Rate 10 mm/hr (0-20)
--- NOTE | 2020-11-16 22:53 | PC.NURSE ---
called to patient's room. patient wanting to leave. refusing ct. found out patient has her ride en route and is only to get home and refuses to stay.
[2020-11-16 22:57] VITALS: BP 163/75; PULSE 75; RESP 17; TEMP 36.6; O2SAT 99
[2020-11-16 23:16] LABS: Lymphocytes % 7 % (10-50); Monocytes % 1 % (2-9); Neutrophils % 92 % (42-76); Platelet Estimate Normal; RBC Morphology Normal; Total Cells Counted 100
== END 2020-11-16 22:59 | disposition home or self-care (01) ==
PROVIDERS: Emergency Provider Emergency Medicine; PCP Nurse Practitioner Family
DX: R10.84 Generalized abdominal pain (principal); K21.9 Gastro-esophageal reflux disease without esophagitis; J44.9 Chronic obstructive pulmonary disease, unspecified; E55.9 Vitamin D deficiency, unspecified; F41.8 Other specified anxiety disorders; F17.210 Nicotine dependence, cigarettes, uncomplicated; Z88.0 Allergy status to penicillin; Z88.5 Allergy status to narcotic agent
CPT/HCPCS: 80053; 80305; 81001; 81025; 82150; 83690; 84145; 85007; 85025; 85651; 86140; 96365; 96375; 99283; J2405

== ENCOUNTER → 2020-12-12 14:36 | Outpatient (CLI) | payer OTHER, SELFPAY | PROVIDERS: PCP Nurse Practitioner Family; Visit Provider Nurse Practitioner Family | DX: R00.2 Palpitations (principal) | CPT/HCPCS: 93225; 93226 ==

== ENCOUNTER → 2022-01-31 18:05 | Outpatient (CLI) | payer OTHER, SELFPAY ==
[2022-01-31 19:01] LABS: Alanine Aminotransferase 14 U/L (12-78); Albumin/Globulin Ratio 1.4 (1.1-1.8); Alkaline Phosphatase 96 U/L (38-126); Aspartate Amino Transferase 24 U/L (14-36); Blood Urea Nitrogen 12 mg/dl (7-17); Calcium 9.3 mg/dl (8.4-10.2); Carbon Dioxide 28 mmol/L (22.0-30.0); Chloride 102 mmol/L (98-107); Chol/HDL Ratio 5.3 (1-3.5); Cholesterol 250 mg/dl (140-200); Estimated Glomerular Filt Rate 108 ml/min (>60); GFR (African American) 130 ML/MIN (>60); Globulin 2.9 g/dL (1.3-3.2); Glucose 99 mg/dl (74-100); HDL Cholesterol 47 mg/dl (40-60); Sodium 136 mmol/L (136-145); Total Protein,Serum 6.9 g/dl (6.3-8.2); Triglycerides 133 mg/dl (30-150); VLDL Cholesterol 27 mg/dL (0-40)
[2022-01-31 19:02] LABS: Bilirubin,Total < 0.1 mg/dl (0.2-1.3)
[2022-01-31 19:13] LABS: Direct LDL Cholesterol 145.77 mg/dL (100-129)
[2022-01-31 19:19] LABS: 25-OH Vitamin D, Total 29.9 ng/mL (30-100)
[2022-01-31 19:20] LABS: Free T4 (Free Thyroxine) 1.01 ng/dl (0.78-2.19)
[2022-01-31 19:33] LABS: Basophils # 0.1 K/mm3 (0-0.2); Basophils % 2.9 % (0.1-2.0); Eosinophils # 0.2 K/mm3 (0.0-0.4); Eosinophils % 4.4 % (0.1-12.0); Hematocrit 40.5 % (37.0-47.0); Hemoglobin 13.6 g/dL (12.2-16.2); Lymphocytes # 1.4 K/mm3 (0.7-4.5); Lymphocytes % 30.7 % (10-50); Mean Corpuscular HGB Conc 33.5 g/dL (31.8-35.4); Mean Corpuscular Hemoglobin 28.9 pg (27.0-31.2); Mean Corpuscular Volume 86.2 fl (81-99); Mean Platelet Volume 8.4 fl (7.4-10.4); Monocytes # 0.2 K/mm3 (0.1-1.0); Monocytes % 4.7 % (1.7-9.3); Neutrophils # 2.6 K/mm3 (1.8-7.8); Neutrophils % 57.4 % (37.0-80.0); Platelet Count 312 K/mm3 (142-424); Red Cell Distribution Width 14.6 % (11.5-17.5); White Blood Count 4.5 K/mm3 (4.8-10.8)
[2022-01-31 19:35] LABS: Thyroid Stimulating Hormone 1.18 uIU/mL (0.465-4.68)
== END ==
PROVIDERS: PCP Emergency Medicine; Visit Provider Emergency Medicine
DX: R06.00 Dyspnea, unspecified (principal); R10.9 Unspecified abdominal pain; E55.9 Vitamin D deficiency, unspecified
CPT/HCPCS: 80053; 80061; 82306; 84439; 84443; 85025

== ENCOUNTER → 2023-01-30 13:09 | Outpatient (CLI) | payer OTHER, SELFPAY ==
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
== END ==
PROVIDERS: PCP Emergency Medicine; Visit Provider Nurse Practitioner Family
DX: G44.319 Acute post-traumatic headache, not intractable (principal)
CPT/HCPCS: 70460; Q9966

== ENCOUNTER 2023-09-03 13:42 | Emergency (ER) | payer OTHER, SELFPAY ==
[2023-09-03 14:55] VITALS: BP 131/76; PULSE 101; RESP 21; TEMP 37.2; O2SAT 96; BMI 27.3
[2023-09-03 15:09] LABS: UTC Influenza A Antigen Positive (Negative)
[2023-09-03 15:10] LABS: UTC Influenza B Antigen Negative (Negative)
--- NOTE | 2023-09-03 15:16 | ED_ITS ---
Discharge Plan Disposition Patient Disposition: Home, Self-Care Condition: Good Prescriptions Prescriptions: New oseltamivir [Tamiflu] 75 mg capsule 75 mg PO BID 5 Days Qty: 10 0RF ondansetron 4 mg tablet,disintegrating 4 mg PO Q8H PRN (Reason: nausea and vomiting) Qty: 10 0RF No Action furosemide 40 mg tablet 40 mg PO DAILY Patient Comments: TAKE 1 TABLET 1 TIME EACH DAY atorvastatin 40 mg tablet 40 mg PO HS Patient Comments: TAKE 1 TABLET 1 TIME EACH DAY sucralfate 1 gram tablet 1 g PO DAILY Patient Comments: TAKE 1 TABLET 2 TIMES EACH DAY clonazepam 0.5 mg tablet 0.5 mg PO DAILY Patient Comments: TAKE 1 TABLET 2 TIMES EACH DAY FOR ANXIETY gabapentin 400 mg capsule 400 mg PO TID Patient Comments: TAKE 1 CAPSULE 3 TIMES EACH DAY aspirin 81 mg tablet,delayed release (DR/EC) 81 mg PO DAILY Patient Comments: TAKE 1 TABLET 1 TIME EACH DAY potassium chloride 20 mEq tablet,ER particles/crystals 20 meq PO DAILY Patient Comments: TAKE 1 TABLET 1 TIME EACH DAY omeprazole 20 mg capsule,delayed release(DR/EC) 20 mg PO DAILY Patient Comments: TAKE 1 CAPSULE 1 TIME EACH DAY FOR ACID REFLUX ergocalciferol (vitamin D2) [Vitamin D2] 1,250 mcg (50,000 unit) capsule 1,250 mcg PO DAILY Patient Comments: TAKE 1 CAPSULE 1 TIME EACH WEEK Vraylar 1.5 mg capsule 1.5 mg PO DAILY Breztri Aerosphere 160-9-4.8 mcg/actuation HFA aerosol inhaler 1 puff INHALATION BID Patient Comments: INHALE 1 PUFF 2 TIMES EACH DAY FOR COPD Referrals Follow up/Referrals: Raymundo Gonzalez DO [Primary Care Provider] - See instructions Activity Restrictions/Add. Instructions Additional Instructions/Restrictions: * Start Tamiflu today if you are going to take it. Discussed risk and possible benefits. * Too late to start Tamiflu. Most effective when started within 48 hours of symptoms onset * Lots of rest * Increase Fluids water, Gatorade, powerade, pedialyte,if /toddler/child * Alternate Tylenol and / or ibuprofen as discussed for fever, aches, chills Follow up IMMEDIATELY with your family doctor for new or worsening Symptoms OR no noticeable improvement over the next 48-72 hours, 911 for difficulty or breathing * You or your child area contagious until no fever, aches, chills for 24 hours with medication for symptoms * Help Prevent the spread of influenza: * ?Wash your hands often. Use soap and water. Wash your hands after you use the bathroom, change a child's diapers, or sneeze. Wash your hands before you prepare or eat food. Use gel hand cleanser that has 60% alcohol, when soap and water are not available. Do not touch your eyes, nose, or mouth unless you have washed your hands first. * Cover your mouth when you sneeze or cough. Cough into a tissue or the bend of your arm. If you use a tissue, throw it away immediately and wash your hands. * Clean shared items with a germ-killing service cleaner. Clean table surfaces, doorknobs, and light switches. Do not share towels, silverware, and dishes with people who are sick. Wash bed sheets, towels, silverware, and dishes with soap and water. * Wear a mask over your mouth and nose if you are sick. The face mask may help protect others from becoming infected with the flu. Wear the mask when in common areas of your home or if you seek care with a healthcare provider. * Stay away from others if you are sick. Stay at home until 24 hours after your fever and symptoms are gone. Clinical Impressions Clinical Impression: Influenza Instructions Patient Instructions: DI for Influenza -- Adult Discharge ED Provider: Ximena Eugene [facility] General Stated complaint: body aches, fever Mode of Arrival: Ambulatory Source of Information: Patient Limitations: No Limitations Time Seen by Provider: 09/03/23 15:16 Description of Symptoms (Recalled from Triage Doc. by RN): PATIENT C/O BODY ACHES AND FEVER X 2 DAYS HEENT Symptoms (Recalled from RN notes): No Resp Symptoms (Recalled from RN notes): No Skin Symptoms (Recalled from RN notes): No MS Symptoms (Recalled from RN notes): No Functional Status (Recalled from RN notes): WNL History of Present Illness Provider Complaint: Patient states that she has been having fever, chills, and body aches that started a couple days ago and today she was feeling worse so she came in to get checked worried she may have flu or COVID Related Data Home Medications Medication Instructions Recorded Confirmed aspirin 81 mg tablet,delayed 81 mg PO DAILY 09/03/23 09/03/23 release atorvastatin 40 mg tablet 40 mg PO HS 09/03/23 09/03/23 budesonide 160 mcg-glycopyr 9 1 puff inhalation BID 09/03/23 09/03/23 mcg-formot 4.8 mcg/actuation HFA inhaler (Breztri Aerosphere) cariprazine 1.5 mg capsule 1.5 mg PO DAILY 09/03/23 09/03/23 (Vraylar) clonazepam 0.5 mg tablet 0.5 mg PO DAILY 09/03/23 09/03/23 ergocalciferol (vitamin D2) 1,250 1,250 mcg PO DAILY 09/03/23 09/03/23 mcg (50,000 unit) capsule (Vitamin D2) furosemide 40 mg tablet 40 mg PO DAILY 09/03/23 09/03/23 gabapentin 400 mg capsule 400 mg PO TID 09/03/23 09/03/23 omeprazole 20 mg capsule,delayed 20 mg PO DAILY 09/03/23 09/03/23 release potassium chloride 20 mEq 20 meq PO DAILY 09/03/23 09/03/23 tablet,extended release(part/cryst) sucralfate 1 gram tablet 1 g PO DAILY 09/03/23 09/03/23 Previous Rx's Medication Instructions Recorded ondansetron 4 mg disintegrating 4 mg PO Q8H PRN nausea and 09/03/23 tablet vomiting #10 tabs oseltamivir 75 mg capsule (Tamiflu) 75 mg PO BID 5 days #10 caps 09/03/23 Allergies Allergy/AdvReac Type Severity Reaction Status Date / Time amoxicillin Allergy Intermediate I-RASH Verified 08/14/23 13:59 azithromycin Allergy Intermediate I-RASH Verified 08/14/23 13:59 doxycycline Allergy Intermediate I-RASH Verified 08/14/23 13:59 Penicillins Allergy Intermediate I-RASH Verified 08/14/23 13:59 codeine [CODEINE] Allergy Unknown Verified 08/14/23 13:59 Worker's Comp Is this a Worker's Comp case?: No [facility] Disclaimer: The information contained in this section may have been updated after the patient was seen, as this information can be updated by other users. Medical History Anxiety Chronic right maxillary sinusitis COPD (chronic obstructive pulmonary disease) Dyspnea Edema Family history of heart disease GERD (gastroesophageal reflux disease) Neuropathy Palpitations Tobacco dependence syndrome Vitamin D deficiency Surgical History H/O tubal ligation bilateral History of section History of removal of cyst oral History of removal of skin mole forehead Family History Other Family history of cancer Family history of diabetes mellitus type II Family history of myocardial infarction Social History Smoking Status: Current every day smoker tobacco type: cigarettes packs per day: 1 second hand exposure: Yes alcohol intake: former substance use type: former substance user current occupational status: unemployed Travel in the last 8 weeks: None household members: children housing: house lives independently: Yes marital status: education level: high school current occupational exposures/hazards: No caffeine: Yes special marily needs: No agree to transfusion: No do you feel safe at home: Yes victim of physical abuse: No victim of emotional abuse: No victim of sexual abuse: No would you like helpful sources: No ROS Obtained: Yes All systems reviewed & no additional complaints except as documented and Yes Systems reviewed as appropriate & no additional complaints except as documented Constitutional Constitutional: Reports system reviewed and no additional complaints, except as documented, Reports as per HPI, Reports body ache, Reports chills, Reports fever(s) and Reports headache(s) ENT Ears, Nose, Mouth, and Throat: Reports system reviewed and no additional complaints, except as documented, Reports as per HPI, Reports headache(s) and Reports nasal congestion Cardiovascular Cardiovascular: Reports system reviewed and no additional complaints, except as documented and Reports as per HPI Respiratory Respiratory: Reports system reviewed and no additional complaints, except as documented and Reports as per HPI Gastrointestinal Gastrointestingal: Reports system reviewed and no additional complaints, except as documented and as per HPI Neurologic Neurologic: Reports headache(s) Physical Exam General General appearance: alert and in no apparent distress ENT ENT exam: Present mucous membranes moist Expanded ENT Exam Nose exam: Absent sinus tenderness Throat exam: Present normal inspection Chest Chest inspection: Present normal inspection and symmetric chest wall rise Respiratory Respiratory exam: Present normal lung sounds bilaterally; Absent respiratory distress or wheezes Cardiovascular Cardiovascular exam: Present regular rate, normal rhythm and normal heart sounds Abdominal Exam Abdominal exam: Present soft and normal bowel sounds; Absent distention or tenderness Neurological Exam Neurological exam: Present alert, oriented X3 and normal gait Medical Decision Making Dilan Inquiry Pt receiving controlled substance: No Dilan was queried for this patient: No Vital Signs: 09/03/23 14:55 Temperature 99.0 F Temperature Source Oral Pulse Rate [Left Brachial] 101 H Respiratory Rate 21 Blood Pressure [Left Arm] 131/76 Blood Pressure Mean [Left Arm] 94 Blood Pressure Source [Left Arm] Automatic Cuff Blood Pressure Position [Left Arm] Sitting 02 Sat by Pulse Oximetry 96 Oxygen Delivery Method Room Air Lab Data Lab results reviewed: Yes I reviewed the patient's lab results. Lab Results 09/03/23 14:49: Influenza Type A Ag Positive A, Influenza Type B Ag Negative
[2023-09-03 15:36] VITALS: BP 131/76; PULSE 101; RESP 21; TEMP 37.2; O2SAT 96
== END 2023-09-03 15:40 | disposition home or self-care (01) ==
PROVIDERS: Emergency Provider Nurse Practitioner; PCP Internal Medicine
DX: J10.1 Influenza due to other identified influenza virus with other respiratory manifestations (principal); R50.9 Fever, unspecified; R51.9 Headache, unspecified; R09.81 Nasal congestion; M79.18 Myalgia, other site
CPT/HCPCS: 87635; 87804; 99204; 99212; G0463

== ENCOUNTER 2023-10-11 11:25 | Emergency (ER) | payer OTHER, SELFPAY ==
[2023-10-11 12:05] VITALS: PULSE 109; RESP 18; TEMP 36.7; O2SAT 96; BMI 26.5
[2023-10-11 12:45] LABS: Apearance,Urine Clear (Clear); Color,Urine Red (Yellow); Protein,Urine 1+ (Negative); Specific Gravity, Urine 1.025 (1.005-1.030)
--- NOTE | 2023-10-11 12:45 | ED_ITS ---
Discharge Plan Disposition Patient Disposition: Home, Self-Care Condition: Good Prescriptions Prescriptions: New levofloxacin 500 mg tablet 500 mg PO DAILY Qty: 10 0RF phenazopyridine [Pyridium] 200 mg tablet 200 mg PO Q8H Qty: 6 0RF No Action furosemide 40 mg tablet 40 mg PO DAILY Patient Comments: TAKE 1 TABLET 1 TIME EACH DAY atorvastatin 40 mg tablet 40 mg PO HS Patient Comments: TAKE 1 TABLET 1 TIME EACH DAY sucralfate 1 gram tablet 1 g PO DAILY Patient Comments: TAKE 1 TABLET 2 TIMES EACH DAY clonazepam 0.5 mg tablet 0.5 mg PO DAILY Patient Comments: TAKE 1 TABLET 2 TIMES EACH DAY FOR ANXIETY gabapentin 400 mg capsule 400 mg PO TID Patient Comments: TAKE 1 CAPSULE 3 TIMES EACH DAY aspirin 81 mg tablet,delayed release (DR/EC) 81 mg PO DAILY Patient Comments: TAKE 1 TABLET 1 TIME EACH DAY potassium chloride 20 mEq tablet,ER particles/crystals 20 meq PO DAILY Patient Comments: TAKE 1 TABLET 1 TIME EACH DAY omeprazole 20 mg capsule,delayed release(DR/EC) 20 mg PO DAILY Patient Comments: TAKE 1 CAPSULE 1 TIME EACH DAY FOR ACID REFLUX ergocalciferol (vitamin D2) [Vitamin D2] 1,250 mcg (50,000 unit) capsule 1,250 mcg PO DAILY Patient Comments: TAKE 1 CAPSULE 1 TIME EACH WEEK Vraylar 1.5 mg capsule 1.5 mg PO DAILY Breztri Aerosphere 160-9-4.8 mcg/actuation HFA aerosol inhaler 1 puff INHALATION BID Patient Comments: INHALE 1 PUFF 2 TIMES EACH DAY FOR COPD Referrals Follow up/Referrals: Raymundo Gonzalez DO [Primary Care Provider] - See instructions Activity Restrictions/Add. Instructions Additional Instructions/Restrictions: Take all medicine as prescribed until gone Follow up with Dr Gonzalez next week Clinical Impressions Clinical Impression: UTI (urinary tract infection) Stand Alone Forms Stand Alone Forms: Work/School Release Instructions Patient Instructions: DI for Urinary Tract Infection (UTI) Discharge ED Provider: Talia Hutchinson [facility] – [place] HPI General Stated complaint: genital pain, abd pain Mode of Arrival: Ambulatory Source of Information: Patient Limitations: No Limitations Time Seen by Provider: 10/11/23 12:46 Description of Symptoms (Recalled from Triage Doc. by RN): Pt has not had a period in a year and a half. She started to bleed today and have lower pelvic pain. She describes them as bad period cramps. She stated that she was under alot of stress . HEENT Symptoms (Recalled from RN notes): No Resp Symptoms (Recalled from RN notes): No Skin Symptoms (Recalled from RN notes): No MS Symptoms (Recalled from RN notes): No Functional Status (Recalled from RN notes): n/a History of Present Illness Provider Complaint: Nausea, suprapubic discomfort X 1 week. Has been under a lot of stress and chalked it up to that. No fever. Yesterday started having vaginal bleeding. Has pelvic cramps. Has not had a period for over a year so was concerned. Onset (ago): week(s) Location: pelvis Quality: burning Relieving factors: none Exacerbating factors: none Associated symptoms: denies other symptoms Treatments prior to arrival: none Related Data Home Medications Medication Instructions Recorded Confirmed aspirin 81 mg tablet,delayed 81 mg PO DAILY 09/03/23 09/03/23 release atorvastatin 40 mg tablet 40 mg PO HS 09/03/23 09/03/23 budesonide 160 mcg-glycopyr 9 1 puff inhalation BID 09/03/23 09/03/23 mcg-formot 4.8 mcg/actuation HFA inhaler (Breztri Aerosphere) cariprazine 1.5 mg capsule 1.5 mg PO DAILY 09/03/23 09/03/23 (Vraylar) clonazepam 0.5 mg tablet 0.5 mg PO DAILY 09/03/23 09/03/23 ergocalciferol (vitamin D2) 1,250 1,250 mcg PO DAILY 09/03/23 09/03/23 mcg (50,000 unit) capsule (Vitamin D2) furosemide 40 mg tablet 40 mg PO DAILY 09/03/23 09/03/23 gabapentin 400 mg capsule 400 mg PO TID 09/03/23 09/03/23 omeprazole 20 mg capsule,delayed 20 mg PO DAILY 09/03/23 09/03/23 release potassium chloride 20 mEq 20 meq PO DAILY 09/03/23 09/03/23 tablet,extended release(part/cryst) sucralfate 1 gram tablet 1 g PO DAILY 09/03/23 09/03/23 Previous Rx's Medication Instructions Recorded levofloxacin 500 mg tablet 500 mg PO DAILY #10 tabs 02/09/24 phenazopyridine 200 mg tablet 200 mg PO Q8H 6 doses #6 tabs 10/11/23 (Pyridium) Allergies Allergy/AdvReac Type Severity Reaction Status Date / Time amoxicillin Allergy Intermediate I-RASH Verified 10/11/23 12:43 azithromycin Allergy Intermediate I-RASH Verified 10/11/23 12:43 doxycycline Allergy Intermediate I-RASH Verified 10/11/23 12:43 Penicillins Allergy Intermediate I-RASH Verified 10/11/23 12:43 codeine [CODEINE] Allergy Unknown Verified 10/11/23 12:43 Worker's Comp Is this a Worker's Comp case?: No [facility] Disclaimer: The information contained in this section may have been updated after the patient was seen, as this information can be updated by other users. Medical History Anxiety Chronic right maxillary sinusitis COPD (chronic obstructive pulmonary disease) Dyspnea Edema Family history of heart disease GERD (gastroesophageal reflux disease) Neuropathy Palpitations Tobacco dependence syndrome Vitamin D deficiency Surgical History H/O tubal ligation bilateral History of section History of removal of cyst oral History of removal of skin mole forehead Family History Other Family history of cancer Family history of diabetes mellitus type II Family history of myocardial infarction Social History Smoking Status: Current every day smoker tobacco type: cigarettes packs per day: 1 second hand exposure: Yes alcohol intake: former substance use type: former substance user current occupational status: unemployed Travel in the last 8 weeks: None household members: children housing: house lives independently: Yes marital status: education level: high school current occupational exposures/hazards: No caffeine: Yes special marily needs: No agree to transfusion: No do you feel safe at home: Yes victim of physical abuse: No victim of emotional abuse: No victim of sexual abuse: No would you like helpful sources: No ROS Obtained: Yes All systems reviewed & no additional complaints except as documented Constitutional Constitutional: Reports system reviewed and no additional complaints, except as documented, Reports fatigue and Reports malaise Gastrointestinal Gastrointestingal: Reports system reviewed and no additional complaints, except as documented and abdominal pain Genitourinary Female Genitourinary: Reports system reviewed and no additional complaints, except as documented and Reports abnormal vaginal bleeding Endocrine Endocrine: Reports fatigue Physical Exam General General appearance: alert and in no apparent distress Chest Chest inspection: Present normal inspection and symmetric chest wall rise; Absent tenderness Respiratory Respiratory exam: Present normal lung sounds bilaterally; Absent respiratory distress Cardiovascular Cardiovascular exam: Present regular rate and normal rhythm; Absent JVD Abdominal Exam Abdominal exam: Present soft and normal bowel sounds; Absent distention, tenderness or guarding Extremities Exam Extremities exam: Present normal inspection, full ROM and normal capillary refill; Absent calf tenderness Back Exam Back exam: Present normal inspection; Absent tenderness Neurological Exam Neurological exam: Present alert and oriented X3 Psychiatric Psychiatric exam: Present normal affect and normal mood Skin Skin exam: Present warm, dry, intact and normal color Lymphatic Lymphatic Findings: no adenopathy Medical Decision Making Dilan Inquiry Pt receiving controlled substance: No Vital Signs: 10/11/23 12:05 Temperature 98.1 F Temperature Source Oral Pulse Rate [Right Radial] 109 H Respiratory Rate 18 02 Sat by Pulse Oximetry 96 Oxygen Delivery Method Room Air Lab Data Lab results reviewed: Yes I reviewed the patient's lab results. Orders (Tests/Meds): ORDERS Category Date Time Status Urine Culture Stat Micro 10/11/23 12:45 Ordered
[2023-10-11 12:46] LABS: Bilirubin,Urine 2+ (Negative); Blood, Urine 3+ (Negative); Glucose,Urine (UA) 1+ (Negative); Ketones,Urine 1+ (Negative); UTC Leukocyte Esterase,Urine Negative (Negative); UTC Nitrate,Urine Positive (Negative); Urobilinogen,Urine 4 EU/dl (0.2)
[2023-10-11 13:14] VITALS: BP 0/0; PULSE 109; RESP 18; TEMP 36.7; O2SAT 96
== END 2023-10-11 13:00 | disposition home or self-care (01) ==
PROVIDERS: Emergency Provider Physician Assistant; PCP Internal Medicine
DX: N39.0 Urinary tract infection, site not specified (principal); B96.89 Other specified bacterial agents as the cause of diseases classified elsewhere; R10.30 Lower abdominal pain, unspecified; R11.0 Nausea; F17.210 Nicotine dependence, cigarettes, uncomplicated; J44.9 Chronic obstructive pulmonary disease, unspecified; K21.9 Gastro-esophageal reflux disease without esophagitis
CPT/HCPCS: 81003; 87086; 99212; 99214; G0463

== ENCOUNTER 2024-01-16 09:57 | Outpatient (CLI) | payer OTHER, SELFPAY ==
[2024-01-15 18:08] LABS: Basophils # 0.1 K/mm3 (0-0.2); Basophils % 0.9 % (0.1-2.0); Eosinophils % 0.4 % (0.1-12.0); Hematocrit 47.6 % (37.0-47.0); Hemoglobin 15.5 g/dL (12.2-16.2); Lymphocytes # 1.6 K/mm3 (0.7-4.5); Lymphocytes % 28.5 % (10-50); Mean Corpuscular HGB Conc 32.5 g/dL (31.8-35.4); Mean Corpuscular Hemoglobin 31.9 pg (27.0-31.2); Mean Corpuscular Volume 98.2 fl (81-99); Mean Platelet Volume 8.7 fl (7.4-10.4); Monocytes # 0.3 K/mm3 (0.1-1.0); Monocytes % 4.7 % (1.7-9.3); Neutrophils # 3.7 K/mm3 (1.8-7.8); Neutrophils % 65.5 % (37.0-80.0); Platelet Count 275 K/mm3 (142-424); Red Blood Count 4.85 M/mm3 (4.20-5.40); Red Cell Distribution Width 14.5 % (11.5-17.5); White Blood Count 5.7 K/mm3 (4.8-10.8)
[2024-01-15 18:12] LABS: Alanine Aminotransferase 19 U/L (12-78); Albumin Level 4.4 g/dl (3.5-5.0); Albumin/Globulin Ratio 1.5 (1.1-1.8); Alkaline Phosphatase 73 U/L (38-126); Anion Gap 11.9 mEq/L (5-15); Aspartate Amino Transferase 27 U/L (14-36); Bilirubin,Total 0.7 mg/dl (0.2-1.3); Blood Urea Nitrogen 9 mg/dl (7-17); Calcium 9.6 mg/dl (8.4-10.2); Carbon Dioxide 25 mmol/L (22.0-30.0); Chloride 105 mmol/L (98-107); Estimated Glomerular Filt Rate 132 ml/min (>60); GFR (African American) 160 ML/MIN (>60); Glucose 93 mg/dl (74-100); HDL Cholesterol 80 mg/dl (40-60); Potassium 3.9 mmoL/L (3.5-5.1); Sodium 138 mmol/L (136-145); Total Protein,Serum 7.4 g/dl (6.3-8.2); Triglycerides 92 mg/dl (30-150); VLDL Cholesterol 18 mg/dL (0-40)
[2024-01-15 18:23] LABS: Direct LDL Cholesterol 206.64 mg/dL (100-129)
[2024-01-15 18:28] LABS: Chol/HDL Ratio 4.2 (1-3.5); Cholesterol 334 mg/dl (140-200)
[2024-01-15 18:30] LABS: 25-OH Vitamin D, Total 32.3 ng/mL (30-100)
[2024-01-15 18:43] LABS: Thyroid Stimulating Hormone 0.67 uIU/mL (0.465-4.68)
== END 2024-01-16 23:59 | disposition home or self-care (01) ==
LOC: LAB.DROPOF 09:58
PROVIDERS: Visit Provider Family Medicine
DX: R10.84 Generalized abdominal pain (principal); E66.3 Overweight; Z79.899 Other long term (current) drug therapy; Z68.24 Body mass index [BMI] 24.0-24.9, adult
CPT/HCPCS: 80053; 80061; 82306; 84443; 85025

== ENCOUNTER 2024-03-25 14:01 | Emergency (ER) | payer OTHER, SELFPAY ==
[2024-03-25 14:30] VITALS: BP 166/90; PULSE 77; RESP 17; TEMP 36.7; O2SAT 98; BMI 24.3
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
[2024-03-25 14:45] LABS: Apearance,Urine Clear (Clear); Bilirubin,Urine Negative (Negative); Blood, Urine Trace (Negative); Color,Urine Amber (Yellow); Glucose,Urine (UA) Negative (Negative); Ketones,Urine Negative (Negative); Protein,Urine Negative (Negative); Specific Gravity, Urine 1.025 (1.005-1.030); UTC Leukocyte Esterase,Urine Negative (Negative); UTC Nitrate,Urine Negative (Negative); UTC Pregnancy Test, Urine Negative (Negative); Urobilinogen,Urine 0.2 EU/dl (0.2)
[2024-03-25 15:11] VITALS: BP 166/90; PULSE 77; RESP 17; TEMP 36.7; O2SAT 98
== END 2024-03-25 15:16 | disposition still patient (30) ==
PROVIDERS: Emergency Provider Nurse Practitioner; PCP Internal Medicine
DX: R30.0 Dysuria; M54.59 Other low back pain; B96.89 Other specified bacterial agents as the cause of diseases classified elsewhere; R11.2 Nausea with vomiting, unspecified
CPT/HCPCS: 81003; 81025; 87086; 99212; 99213; G0463

== ENCOUNTER 2024-04-07 13:30 | Emergency (ER) | payer OTHER, SELFPAY ==
[2024-04-07 13:30] VITALS: BP 120/76; PULSE 85; RESP 20; TEMP 37.1; O2SAT 98; BMI 23.6
[2024-04-07 13:46] LABS: Apearance,Urine Cloudy (Clear); Bilirubin,Urine 1+ (Negative); Blood, Urine Trace (Negative); Color,Urine Dark Yellow (Yellow); Glucose,Urine (UA) Negative (Negative); Ketones,Urine Negative (Negative); PH,Urine 7.5 (5.0-8.5); Protein,Urine 1+ (Negative); UTC Leukocyte Esterase,Urine 2+ (Negative); UTC Nitrate,Urine Negative (Negative); Urobilinogen,Urine 0.2 EU/dl (0.2)
[2024-04-07 14:09] VITALS: BP 120/76; PULSE 85; RESP 20; TEMP 37.1; O2SAT 98
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
== END 2024-04-07 14:15 | disposition home or self-care (01) ==
PROVIDERS: Emergency Provider Nurse Practitioner Family; PCP Internal Medicine
DX: N39.0 Urinary tract infection, site not specified (principal); B96.29 Other Escherichia coli [E. coli] as the cause of diseases classified elsewhere; R30.0 Dysuria; R11.0 Nausea
CPT/HCPCS: 81003; 87086; 87088; 87186; 99212; 99214; G0463

== ENCOUNTER 2024-04-12 08:13 | Emergency (ER) | payer OTHER, SELFPAY ==
[2024-04-12 08:14] VITALS: BP 162/89; PULSE 79; RESP 23; TEMP 36.9; O2SAT 98; BMI 24.0
--- NOTE | 2024-04-12 08:28 | PC.NURSE ---
called [facility] and spoke with house they are faxing over to [phone] a summary of pt visit to ed at there facility
[2024-04-12 08:30] VITALS: BP 157/93; PULSE 72; RESP 13; O2SAT 99
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
--- NOTE | 2024-04-12 08:40 | PC.NURSE ---
dr brooke at bedside
[2024-04-12 08:41] LABS: Albumin Level 4.5 g/dl (3.5-5.0); Basophils % 0.5 % (0.1-2.0); Chloride 106 mmol/L (98-107); Eosinophils % 0.3 % (0.1-12.0); Hematocrit 48.4 % (37.0-47.0); Hemoglobin 15.5 g/dL (12.2-16.2); Lymphocytes # 1.1 K/mm3 (0.7-4.5); Lymphocytes % 13.4 % (10-50); Mean Corpuscular Hemoglobin 31.9 pg (27.0-31.2); Mean Corpuscular Volume 99.5 fl (81-99); Mean Platelet Volume 7.7 fl (7.4-10.4); Monocytes # 0.2 K/mm3 (0.1-1.0); Monocytes % 2.8 % (1.7-9.3); Neutrophils # 6.9 K/mm3 (1.8-7.8); Neutrophils % 82.9 % (37.0-80.0); Platelet Count 259 K/mm3 (142-424); Potassium 3.5 mmoL/L (3.5-5.1); Red Blood Count 4.87 M/mm3 (4.20-5.40); Red Cell Distribution Width 14.5 % (11.5-17.5); Sodium 138 mmol/L (136-145); White Blood Count 8.3 K/mm3 (4.8-10.8)
[2024-04-12 08:43] LABS: Alanine Aminotransferase 16 U/L (12-78); Anion Gap 8.5 mEq/L (5-15); Aspartate Amino Transferase 31 U/L (14-36); Blood Urea Nitrogen 15 mg/dl (7-17); Carbon Dioxide 27 mmol/L (22.0-30.0); Estimated Glomerular Filt Rate 89 ml/min (>60); GFR (African American) 108 ML/MIN (>60)
[2024-04-12] MEDS: MORPHINE 4MG/ML SYRINGE 4 MG IV (08:43)
[2024-04-12] MEDS: ONDANSETRON 4MG/2ML VIAL 4 MG IV (08:43)
[2024-04-12] MEDS: LACTATED RINGERS 1000ML 1,000 ML 999 ML IV (08:43)
[2024-04-12 08:44] LABS: Albumin/Globulin Ratio 1.3 (1.1-1.8); Alkaline Phosphatase 89 U/L (38-126); Globulin 3.4 g/dL (1.3-3.2); Glucose 155 mg/dl (74-100); HCG Qualitative, Serum Negative (Negative); Lipase 89 U/L (23-300); Total Protein,Serum 7.9 g/dl (6.3-8.2)
--- NOTE | 2024-04-12 08:45 | CT_ITS ---
PROCEDURE INFORMATION: Exam: CT Abdomen And Pelvis With Contrast Exam date and time: 04/12/2024 9:00 AM Age: 49 years old Clinical indication: Abdominal pain; Additional info: Suprapubic abdominal pain TECHNIQUE: Imaging protocol: Computed tomography of the abdomen and pelvis with contrast. Radiation optimization: All CT scans at this facility use at least one of these dose optimization techniques: automated exposure control; mA and/or kV adjustment per patient size (includes targeted exams where dose is matched to clinical indication); or iterative reconstruction. Contrast material: ISOVUE; Contrast volume: 75 ml; Contrast route: IV; COMPARISON: CT ABDOMEN PELVIS WO CON 06/07/2020 8:18 PM FINDINGS: Liver: 12 mm irregularly shaped low-attenuation area in the right lobe of the liver 54 Hounsfield units. (series 3, image 28). additional 10 mm hypodense lesion more centrally in the liver measures 72 Hounsfield units (series 3, image 27.). 13 mm hypodense region in the anterior aspect of the liver. Seventy Hounsfield units ( series 3, image 15.) Fourth lesion posteriorly and inferiorly in the right lobe of the liver 13 x 16 mm and 56 Hounsfield units (series 3, image 41). Hepatomegaly 20 cm Gallbladder and biliary ducts: Normal. No calcified stones. No ductal dilation. Pancreas: Mild dilatation of the pancreatic duct Spleen: Normal. No splenomegaly. Adrenal glands: Normal. No mass. Kidneys and ureters: Normal. No hydronephrosis. Stomach and bowel: Unremarkable. No obstruction. No mucosal thickening. Appendix: Normal appendix Intraperitoneal space: Unremarkable. No free air. No significant fluid collection. Vasculature: Unremarkable. No abdominal aortic aneurysm. Lymph nodes: Unremarkable. No enlarged lymph nodes. Urinary bladder: Unremarkable as visualized. Reproductive: Unremarkable as visualized. Bones/joints: Unremarkable. No acute fracture. Soft tissues: Unremarkable. IMPRESSION: 12 mm irregularly shaped low-attenuation area in the right lobe of the liver 54 Hounsfield units. (series 3, image 28). additional 10 mm hypodense lesion more centrally in the liver measures 72 Hounsfield units (series 3, image 27.). 13 mm hypodense region in the anterior aspect of the liver. Seventy Hounsfield units ( series 3, image 15.) Fourth lesion posteriorly and inferiorly in the right lobe of the liver 13 x 16 mm and 56 Hounsfield units (series 3, image 41). Recommend liver MRI for further evaluation
[2024-04-12] MEDS: SODIUM CHLORIDE 0.9% 10ML SYR (RAD ONLY) 10 ML IV (09:05)
[2024-04-12] MEDS: IOPAMIDOL-370 (76%);100ML BOTTLE 75 ML IV (09:06)
[2024-04-12] MEDS: BELLADONNA ALKALOIDS 60 ML ML PO (09:14)
[2024-04-12] MEDS: KETOROLAC 30MG/ML VIAL 15 MG IV (09:15)
[2024-04-12] MEDS: PROCHLORPERAZINE 10MG/2ML VIAL 5 MG IV (09:15)
[2024-04-12 09:21] LABS: Microscopic, Urine URINE MICROSCOPIC (MICROSCOPIC)
[2024-04-12 09:24] LABS: Appearance,Urine CLEAR (Clear); Blood, Urine TRACE-I (Negative); Color,Urine YELLOW (Yellow); Glucose,Urine (UA) Negative (Negative); Ketones,Urine 1+ (Negative); Leukocyte Esterase,Urine Negative (Negative); Nitrate,Urine Negative (Negative); PH,Urine 6.5 (5.0-8.5); Protein,Urine TRACE (Negative); Specific Gravity, Urine 1.025 (1.005-1.030); Urobilinogen,Urine 0.2 EU/dl (0.2)
[2024-04-12 09:32] VITALS: BP 181/95; PULSE 60; O2SAT 99
[2024-04-12 09:35] LABS: Bacteria,Urine Trace /lpf; Bilirubin,Urine 1+ (Negative); WBC,Urine Occasional #/hpf (0-3)
--- NOTE | 2024-04-12 10:12 | PC.NURSE ---
DR HANNAH AT BEDSIDE TO REEVALUATE PT
[2024-04-12 10:20] VITALS: BP 170/84; PULSE 60; RESP 18; TEMP 36.7; O2SAT 99
== END 2024-04-12 10:20 | disposition home or self-care (01) ==
PROVIDERS: Emergency Provider Emergency Medicine; PCP Internal Medicine
DX: R10.84 Generalized abdominal pain (principal); K21.9 Gastro-esophageal reflux disease without esophagitis; J44.9 Chronic obstructive pulmonary disease, unspecified; F17.210 Nicotine dependence, cigarettes, uncomplicated
CPT/HCPCS: 74177; 80053; 81001; 83690; 84703; 85025; 96361; 96374; 96375; 99285; J0780; J1885; J2270; J2405; J7120; Q9967

== ENCOUNTER 2024-04-13 12:14 | Emergency (ER) | payer OTHER, SELFPAY ==
[2024-04-13 12:15] VITALS: BP 176/92; PULSE 74; RESP 18; TEMP 36.8; O2SAT 99; BMI 24.3
--- NOTE | 2024-04-13 12:16 | ECG_ITS ---
APPROVED REPORT Exam: Resting ECG HR:48 bpm ECG Measurements Heart Rate 48 AXES OH 135 P 56 QRSd 74 QRS 79 QT 407 T 64 QTc 372 Conclusion Sinus bradycardia normal axis no ST elevation ST depression or T wave inversions concerning for acute ischemia Electronically signed by : Pretty Mujica, 04/13/2024 16:18:11
[2024-04-13 12:48] LABS: Basophils # 0.1 K/mm3 (0-0.2); Basophils % 0.9 % (0.1-2.0); Eosinophils % 0.6 % (0.1-12.0); Hematocrit 49.2 % (37.0-47.0); Hemoglobin 15.7 g/dL (12.2-16.2); Lymphocytes # 1.4 K/mm3 (0.7-4.5); Lymphocytes % 24.8 % (10-50); Mean Corpuscular HGB Conc 31.9 g/dL (31.8-35.4); Mean Corpuscular Hemoglobin 32.3 pg (27.0-31.2); Mean Corpuscular Volume 101.2 fl (81-99); Mean Platelet Volume 8.4 fl (7.4-10.4); Monocytes # 0.3 K/mm3 (0.1-1.0); Monocytes % 5.2 % (1.7-9.3); Neutrophils # 3.8 K/mm3 (1.8-7.8); Neutrophils % 68.6 % (37.0-80.0); Platelet Count 235 K/mm3 (142-424); Red Blood Count 4.86 M/mm3 (4.20-5.40); Red Cell Distribution Width 14.3 % (11.5-17.5); White Blood Count 5.6 K/mm3 (4.8-10.8)
[2024-04-13 12:51] LABS: Albumin Level 4.2 g/dl (3.5-5.0); Chloride 110 mmol/L (98-107); Potassium 3.6 mmoL/L (3.5-5.1); Sodium 138 mmol/L (136-145)
[2024-04-13 12:53] LABS: Blood Urea Nitrogen 13 mg/dl (7-17); Creatinine Clearance Estimated 113 mL/min (50-200); Estimated Glomerular Filt Rate 89 ml/min (>60); GFR (African American) 108 ML/MIN (>60)
[2024-04-13 12:54] LABS: Alanine Aminotransferase 14 U/L (12-78); Albumin/Globulin Ratio 1.4 (1.1-1.8); Alkaline Phosphatase 64 U/L (38-126); Anion Gap 8.6 mEq/L (5-15); Aspartate Amino Transferase 26 U/L (14-36); Bilirubin,Total 1.1 mg/dl (0.2-1.3); Calcium 8.7 mg/dl (8.4-10.2); Carbon Dioxide 23 mmol/L (22.0-30.0); Globulin 3.1 g/dL (1.3-3.2); Glucose 111 mg/dl (74-100); Lipase 99 U/L (23-300); Total Protein,Serum 7.3 g/dl (6.3-8.2)
[2024-04-13 13:07] LABS: Troponin I < 0.01 ng/ml (0.00-0.034)
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
--- NOTE | 2024-04-13 13:32 | XR_ITS ---
FINAL REPORT CLINICAL HISTORY: abdominal pain constipation FINDINGS: SINGLE VIEW ABDOMEN A single view of the abdomen was obtained. There is a nonobstructive bowel gas pattern. There are no abnormally dilated loops of small bowel. No abnormal calcifications are identified. IMPRESSION: Nonobstructive bowel gas pattern. Reviewed, Interpreted and Dictated by Roberto Carlos Crow III, MD Transcribed by Laura Nielsen Authenticated and . [facility]
--- NOTE | 2024-04-13 13:38 | PC.NURSE ---
RAD at [facility]
[2024-04-13] MEDS: diphenhydrAMINE 50MG/ML VIAL 25 MG IV (13:41)
[2024-04-13] MEDS: LORazepam 2MG/ML VIAL 1 MG IV (13:41)
[2024-04-13 13:43] LABS: HCG Qualitative, Serum Negative (Negative)
[2024-04-13] MEDS: METOCLOPRAMIDE HCL 10MG/2ML VIAL 10 MG IVP (13:43)
[2024-04-13 13:51] VITALS: BP 178/121; PULSE 60; O2SAT 100
[2024-04-13 14:08] LABS: Lactate Venous 1.3 mmol/L (0.4-2.0); VBG Base Excess -5.7 mmol/L (-2.4-2.3); VBG HCO3 18.1 mmol/L (23-30); VBG Oxygen Saturation 93.4 % (50-70); VBG PCO2 25.8 mmol/L (35-51); VBG PH 7.46 mmol/L (7.31-7.41); VBG PO2 60.1 mmol/L (28-40); VBG Total CO2 18.9 mmol/L (23-27)
--- NOTE | 2024-04-13 14:32 | PC.NURSE ---
Dr. Mujica at [facility]
[2024-04-13] MEDS: droPERidol 5MG/2ML VIAL 2.5 MG IV (14:42)
[2024-04-13] MEDS: LACTATED RINGERS 1000ML 1,000 ML 999 ML IV (14:42)
[2024-04-13 15:43] VITALS: BP 186/87; PULSE 66; RESP 16; TEMP 36.8; O2SAT 97
== END 2024-04-13 15:44 | disposition home or self-care (01) ==
PROVIDERS: Student in an Organized Health Care Education/Training Program; Emergency Provider Emergency Medicine
DX: R10.84 Generalized abdominal pain (principal); R11.0 Nausea; F17.210 Nicotine dependence, cigarettes, uncomplicated; J44.9 Chronic obstructive pulmonary disease, unspecified; K21.9 Gastro-esophageal reflux disease without esophagitis
CPT/HCPCS: 74018; 80053; 82803; 83690; 84484; 84703; 85025; 93005; 96361; 96374; 96375; 99284; J1200; J1790; J2060; J2765; J7120

== ENCOUNTER 2024-06-22 04:22 | Emergency (ER) | payer OTHER, SELFPAY ==
[2024-06-22 04:34] VITALS: BMI 21.2
[2024-06-22 04:36] VITALS: BP 176/113; PULSE 124; RESP 24; TEMP 36.8; O2SAT 96; BMI 21.2
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
[2024-06-22] MEDS: KETOROLAC 30MG/ML VIAL 30 MG IV (05:04)
[2024-06-22] MEDS: cloNIDine 0.1MG TABLET 0.1 MG PO ×2 (05:04→05:08)
[2024-06-22] MEDS: LORazepam 2MG/ML VIAL 1 MG IV (05:05)
[2024-06-22] MEDS: METHADONE 10MG TABLET 20 MG PO (05:14)
[2024-06-22 05:50] VITALS: BP 143/83; PULSE 92; RESP 18; TEMP 36.7; O2SAT 97
[2024-06-22] MEDS: NALOXONE HCL 4MG SPRAY 4 MG NS (05:53)
[2024-06-22] MEDS: SULFA/TRIMETHOPRIM 1 TABLET 1 EACH PO (05:53)
[2024-06-22 08:22] LABS: HIV (1&2) Antibody Rapid NONREACTIVE (NONREACTIVE)
[2024-06-23 09:29] LABS: HCV Ab Non Reactive (Non Reactive)
== END 2024-06-22 06:05 | disposition home or self-care (01) ==
PROVIDERS: Emergency Provider Emergency Medicine; PCP Family Medicine
DX: F11.23 Opioid dependence with withdrawal (principal); L02.91 Cutaneous abscess, unspecified; L03.90 Cellulitis, unspecified; R11.2 Nausea with vomiting, unspecified; M79.641 Pain in right hand; M79.642 Pain in left hand
CPT/HCPCS: 26010; 96374; 96375; 86803; 87040; 87070; 87077; 87186; 87205; 87389; 99283; J1885; J2060

== ENCOUNTER 2024-06-23 03:57 | Emergency (ER) | payer OTHER, SELFPAY ==
[2024-06-23 03:59] VITALS: BP 155/104; PULSE 96; RESP 22; TEMP 36.9; O2SAT 96; BMI 21.2
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
[2024-06-23 04:30] VITALS: BP 155/90; PULSE 79; O2SAT 97
[2024-06-23] MEDS: METHADONE 10MG TABLET 20 MG PO (04:36)
[2024-06-23 05:00] VITALS: BP 155/83; PULSE 70; O2SAT 97
[2024-06-23 05:15] VITALS: BP 158/92; PULSE 73; O2SAT 97
[2024-06-23 05:29] VITALS: BP 116/72; PULSE 74; RESP 18; TEMP 36.6; O2SAT 98
== END 2024-06-23 05:32 | disposition home or self-care (01) ==
PROVIDERS: Emergency Provider Emergency Medicine
DX: F11.93 Opioid use, unspecified with withdrawal (principal); R11.11 Vomiting without nausea; F17.210 Nicotine dependence, cigarettes, uncomplicated
CPT/HCPCS: 99283

== ENCOUNTER 2024-06-23 21:29 | Emergency (ER) | payer OTHER, SELFPAY ==
[2024-06-23 21:30] VITALS: BP 150/86; PULSE 58; RESP 18; TEMP 36.8; O2SAT 93; BMI 21.2
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
[2024-06-23 22:00] VITALS: BP 155/87; PULSE 81; O2SAT 99
[2024-06-23] MEDS: hydrOXYzine pamoate 25MG CAPSULE 50 MG PO (22:29)
[2024-06-23 22:30] VITALS: BP 155/77; PULSE 84; O2SAT 98
[2024-06-23 22:38] VITALS: BP 155/77; PULSE 91; RESP 18; TEMP 36.8; O2SAT 98
[2024-06-23] MEDS: NALOXONE HCL 4MG SPRAY 4 MG NS (22:57)
--- NOTE | 2024-06-24 20:26 | PEERSUPPORT ---
Peer Support Note Patient Information Patient Information: DOS:06/23/2024 ? Reason: OUD/ED Ps consult ? Drug of choice: Opiates(heroin, fent) ? Current MAT/MOUD: Methadone 30 mg per day ? Desire for MAT/MOUD: Pt has gone to methadone clinic two days for dosing, she says she is still experiencing withdrawals. She is unable to sleep going on three or four days. ? Longest Length of Sobriety: 4.5 years ? Support System: Mother is supportive at bedside. ? Legal Issues: None ? Potential Barriers: Relationship with bf who is actively using. ? Harm reduction: Narcan provided, with instructions to not use alone, pt states she has Narcan. ? Motivation for Change:? Pt shares briefly of her under lying issues, emotional distress, and PTSD that is contributing to her addiction. She is missing her granddaughter and feels like since she has not been able to see her she has no purpose. She says she does not know if she can do it, but wants to and knows inpatient treatment is what it is going to take. She wants to discuss with bf first to offer him to go to. ? Plan of Action: Safety Plan discussed and agreed understanding the risk of overdose. Narcan to be provided by nurse. [email or web address] Recovery print outs for logging cravings and urges. Safe Coping Skills discussed by ps and pt.? Ps provided list of contacts aligning with safety plan for treatment: ?Inpatient: New Day information, address, and number. List of Medical detox/Stabilization programs, Inpatient Treatment facilities, and outpatient facilities( Return to methadone clinic if pt does not report to inpatient treatment). Ps contact for guidance and support. Thank you for allowing [facility] to assist in caring for the patient!
== END 2024-06-23 22:58 | disposition home or self-care (01) ==
PROVIDERS: Emergency Provider Emergency Medicine; PCP Internal Medicine
DX: F11.23 Opioid dependence with withdrawal (principal); F11.20 Opioid dependence, uncomplicated; F41.9 Anxiety disorder, unspecified
CPT/HCPCS: 99283

== ENCOUNTER 2024-11-24 11:38 | Emergency (ER) | payer OTHER, SELFPAY ==
[2024-11-24] VITALS (7 sets, daily range): BP systolic 0–190; BP diastolic 0–87; PULSE 0–76; RESP 0–20; TEMP -17.7–37.2; O2SAT 0–100; BMI 22.8
--- NOTE | 2024-11-24 11:39 | ECG_ITS ---
APPROVED REPORT Exam: Resting ECG HR:57 bpm ECG Measurements Heart Rate 57 AXES ID [id number] P 71 QRSd 75 QRS 77 QT 443 T 49 QTc 436 Conclusion Sinus bradycardia Electronically signed by : SABRA VIGIL, 11/25/2024 07:26:12
--- NOTE | 2024-11-24 11:52 | PC.NURSE ---
Pt in room screaming and moaning loudly. pt dry heaving. I obtained an order for IV zofran per Dr. Carlos. no other needs voiced. call ya in reach.
[2024-11-24] MEDS: ONDANSETRON 4MG/2ML VIAL 4 MG IV (11:57)
[2024-11-24 12:10] LABS: Basophils % 0.3 % (0.1-2.0); Hematocrit 39.7 % (37.0-47.0); Lymphocytes # 0.8 K/mm3 (0.7-4.5); Lymphocytes % 9.8 % (10-50); Mean Corpuscular HGB Conc 32.7 g/dL (31.8-35.4); Mean Corpuscular Hemoglobin 27.8 pg (27.0-31.2); Mean Corpuscular Volume 84.8 fl (81-99); Mean Platelet Volume 9.1 fl (7.4-10.4); Monocytes # 0.2 K/mm3 (0.1-1.0); Monocytes % 2.3 % (1.7-9.3); Neutrophils # 6.9 K/mm3 (1.8-7.8); Neutrophils % 87.3 % (37.0-80.0); Platelet Count 307 K/mm3 (142-424); Red Blood Count 4.68 M/mm3 (4.20-5.40); Red Cell Distribution Width 13.7 % (11.5-17.5); White Blood Count 7.9 K/mm3 (4.8-10.8)
[2024-11-24] MEDS: KETOROLAC 30MG/ML VIAL 30 MG IV (12:11)
[2024-11-24 12:14] LABS: Albumin Level 4.6 g/dl (3.5-5.0); Chloride 106 mmol/L (98-107); Potassium 3.8 mmoL/L (3.5-5.1); Sodium 139 mmol/L (136-145)
[2024-11-24 12:16] LABS: Blood Urea Nitrogen 11 mg/dl (7-17); Creatinine Clearance Estimated 123 mL/min (50-200); Estimated Glomerular Filt Rate 107 ml/min (>60); GFR (African American) 129 ML/MIN (>60)
[2024-11-24 12:17] LABS: Alanine Aminotransferase 17 U/L (12-78); Albumin/Globulin Ratio 1.4 (1.1-1.8); Alkaline Phosphatase 101 U/L (38-126); Anion Gap 11.8 mEq/L (5-15); Aspartate Amino Transferase 27 U/L (14-36); Bilirubin,Total 0.5 mg/dl (0.2-1.3); Calcium 9.7 mg/dl (8.4-10.2); Carbon Dioxide 25 mmol/L (22.0-30.0); Globulin 3.3 g/dL (1.3-3.2); Glucose 159 mg/dl (74-100); Total Protein,Serum 7.9 g/dl (6.3-8.2)
[2024-11-24] MEDS: droPERidol 5MG/2ML VIAL 5 MG IV (12:38)
[2024-11-24] MEDS: 0.9 % SODIUM CHLORIDE 1000ML 1,000 ML 999 ML IV (12:38)
--- NOTE | 2024-11-24 12:39 | PC.NURSE ---
I rounded on the pt. She had vomited on the floor, yellow bile. pt given an emesis bag and meds given per mar. pt has been screaming out in pain since arrival. I took the pt a warm blanket for comfort. no other needs voiced. call ya in reach.
--- NOTE | 2024-11-24 12:44 | PC.NURSE ---
pt in room yelling and sticking her fingers down her throat inducing vomiting. MOP RN went bedside.
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
[2024-11-24 13:13] LABS: HCG,Quantitative < 2 mIU/ml (0-5.42)
[2024-11-24] MEDS: SODIUM CHLORIDE 0.9% 10ML SYR (RAD ONLY) 10 ML IV (13:26)
[2024-11-24] MEDS: 0.9 % SODIUM CHLORIDE 50 ML VIAL IV (13:26)
[2024-11-24] MEDS: IOPAMIDOL-370 (76%);100ML BOTTLE 80 ML IV (13:26)
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
--- NOTE | 2024-11-26 10:45 | PEERSUPPORT ---
Peer Support Note Patient Information Patient Information: DOS: 11/24/2024 Ps attempted to make contact with pt. No answer, voicemail is full. Ps will continue to reach out to patient to offer recovery focused support.
== END 2024-11-24 13:48 | disposition left against medical advice (07) ==
PROVIDERS: Emergency Provider Emergency Medicine; PCP Physician Assistant
DX: R11.10 Vomiting, unspecified (principal); R19.7 Diarrhea, unspecified; F11.23 Opioid dependence with withdrawal
CPT/HCPCS: 80053; 84702; 85025; 93005; 96361; 96374; 96375; 99285; J1790; J1885; J2405; J7030; Q9967

== ENCOUNTER 2025-06-17 20:58 | Emergency (ER) | payer OTHER, SELFPAY ==
[2025-06-17] VITALS (7 sets, daily range): BP systolic 113–143; BP diastolic 55–96; PULSE 117–128; RESP 18–22; TEMP 37.1–37.3; O2SAT 95–100; BMI 21.2
--- OUTSIDE RECORDS SUMMARY | 2025-06-17 21:30 | XMS_ITS | Clinical Summary ---
Author Organization Healthcare Address [address] [place] [address] Care Team Providers Care Cotton Puller Name Role Phone Unavailable Primary Care Provider Unavailabl e Social History Tobacco Use Types Packs/Day Years Used Date Smoking Tobacco: Never Assessed Comments Unknown Sex and Gender Information Value Date Recorded Sex Assigned at Not on file Legal Sex Female 6:50 PM EDT Gender Identity Not on file Sexual Orientation Not on file Plan of Treatment Health Maintenance Due Date Last Done Comments [facility]-Depression Screening 1975 [facility]-Infant/Child/Adol SDOH Screenings 1975 [facility]- SDOH Screenings 01/29/1994 [facility]-Adult SDOH Screenings 01/29/1994 [facility]-DTaP,Tdap,and Td Vaccine s (1 - Tdap) 01/29/1995 [facility]-Hepatitis B Vaccines (1 of 3 - 19+ 3-dose series) 01/29/1995 [facility]-Pap Smear 11/20/1998 11/21/1995, 06/25/1994 [facility]-Cervical Cancer Screening 01/29/2006 [facility]-HPV/Cotest 01/29/2006 11/21/1995, 06/25/1994 CT Colonography 01/29/2021 Colonoscopy 01/29/2021 FIT-DNA 01/29/2021 FIT 01/29/2021 FOBT 01/29/2021 Sigmoidoscopy 01/29/2021 [facility]-Colorectal Cancer Screening 01/29/2021 CIA-[id number]-84 Vaccine ( - season) 2025 [facility]-Influenza Vaccine (#1) 2025 [facility]-Zoster Vaccines (1 of 2) 01/29/2026 HPV Vaccines Aged Out No longer eligi ble based on patient's age to complete this topic [facility]-HIB Vaccines Aged Out No longer e ligible based on patient's age to complete this topic [facility]-Hepatitis A Vaccines Aged Out No longer eligible based on patient's age to complete this topic [facility]-IPV Vaccines Aged Out No longer e ligible based on patient's age to complete this topic [facility]-Pneumococcal Vaccine: Pediatrics (0 to 5 Years) and At-Risk Patients (6 to 49 Years) Aged Out No longer eligible b ased on patient's age to complete this topic [facility]-Rotavirus Vaccines Aged Out No lo nger eligible based on patient's age to complete this topic Procedures Procedure Name Priority Date/Time Associated Diagnosis Comments CYTO DATA CONVERSION Routine 11/21/1995 12:00 AM EST from Last 3 Months or Most Recently Relevant to Health Maintenance Results * Cytology (11/21/1995 12:00 AM EST) 11/21/1995 11/25/1995 Narrative [facility] - 12/04/1995 12:00 AM EST [facility] MR #: [facility] [address] [place], [place] [id number] (Age: 20) F Collect Date: 11/21/1995 00:00 Receipt Date: 11/25/1995 00:00 Page 1 DEPARTMENT OF PATHOLOGY AND LABORATORY MEDICINE CYTOPATHOLOGY REPORT Email: [email or web address] * Converted Case * This report may not match the original report format ATTENDING MD/Practitioner: Abner Mata MD Service: Location: Reported: 12/04/1995 00:00 Collected: 11/21/1995 00:00 INTERPRETATION CERVICAL SCRAPE/ENDOCERVICAL SWAB WITHIN NORMAL LIMITS. SATISFACTORY BUT LIMITED BY SPARSE TO NO ENDOCERVICAL CELLS. Electronically Signed Out CAESAR Arias (ASCP) MD Pino Collazo CT (ASCP) Cervical cytology is a screening test primarily for squamous cancers and precursors and has associated false negative and positive results. New technologies such as liquid based sampling may decrease but will not eliminate all false negative results. Regular screening and follow-up of unexplained clinical signs and symptoms are recommended to minimize false negative results. Please see the ASCCP website (www.asccp.org) for followup recommendations. If HPV testing was requested, correlation with the results is suggested (please call Microbiology at [phone] for results). CLINICAL INFORMATION: Menstrual History: {Not Provided} Date of Last Menstrual Period: {Not Provided} SPECIMEN DESCRIPTION: A: CERVICAL/VAGINAL SMEAR, PAP ICD: F: {Not Entered} SNOMED CODES: 1; [id number] In cases where a pathologist has signed out the report, the service has been rendered in part by a resident. The signing pathologist has performed and is responsible for the reported pathologic evaluation. Historical Provider LAB PATHOLOGY ORDERABLES Fin al Result [facility] from Last 3 Months or Most Recently Relevant to Health Maintenance
--- OUTSIDE RECORDS SUMMARY | 2025-06-17 21:30 | XMS_ITS | Data Portability ---
Author Organization [facility] [place] [facility] Address [address] [place] [address] Assessment Encounter Date Assessment Date Assessment LastModified by Organization Details LastModified Time 03/18/2025 03/18/2025 Be sure to hydrate, consider stopping smoking. Not available 03/18/2025 17:18:57 Plan of Treatment Reminders Order Date Submit Date Provider Last Modified By Organization Details Last Modified Time Details Appointments FOLLOW UP 30 2024 09:00A Emerita TRIMBLE NP Not available Not available Not available Lab rapid flu (A+B) 2024 025 [email or web address] [facility], [address] [place] [address], [id number], 03/26/2025 14:23:14 chlamydia trachomat is + neisseria gonorrhoe ae + trichomon as vaginalis rRNA panel, CHANEL+probe 2024 025 [facility]ORN [facility] ([facility], [address] [place] [address], [id number], 01/07/2025 06:21:40 urinalysi s, dipstick 2024 025 [facility], [address] [place], [place] [address]ther [facility], [place], [address], 12/29/2024 16:02:14 culture, urine 2024 025 NEWBORN [facility]), [address] [place], [address], 01/02/2025 18:07:54 chlamydia trachomat is + neisseria gonorrhoe ae + trichomon as vaginalis rRNA panel, CHANEL+probe 2024 025 NEWBORN [facility] ([place]), [address] [place], [address], 01/02/2025 18:07:53 unlisted lab - toxassure flex 19, [id number] -[id number] 2024 025 NEWBORN [facility] ([place]), [address] [place], [address], 01/02/2025 18:07:52 noninvasi ve colorecta l cancer DNA + occult blood screening , QL, stool 2024 025 [email or web address] [facility], [address], [address], [place], [address], 06/11/2025 09:32:31 Referral gastroent erologist referral - would like to have liver biopsy - did not have US or MRI 2024 025 LILLIAN Ruiz MD, [address], [address], [place], [address], 04/09/2025 13:11:15 gynecolog ist referral - first available appt 2024 025 [email or web address] Kerry Aguilera DO, [address], [address], [place], [address], 01/22/2025 09:51:36 Procedures None recorded. Surgeries None recorded. Imaging CT, abdomen + pelvis, w/o contrast - r/o pyeloneph ritis 2024 025 [email or web address] [facility], [address], [place], [address], 02/23/2025 14:41:54 MAMMO, screening , digital, bilateral 2024 025 [email or web address] [facility] Scheduling, [address], [place], [address], 04/29/2025 10:44:25 US, liver - first available appt 2024 025 [email or web address] [facility] Scheduling, [address], [place], [address], 02/23/2025 14:40:52 Medication Orders azithromy dawna 250 mg tablet 2024 025 [facility], [address] [place] [address], [id number], 03/27/2025 11:02:53 prednison e 20 mg tablet 2024 025 [employer] [facility], [address] [place] [address], [id number], 03/27/2025 11:02:53 guaifenes in ER 600 mg tablet, extended release 12 hr 2024 025 [facility], [address] [place] [address], [id number], 04/07/2025 05:02:06 fluticaso ne propionat e 50 mcg/actua tion nasal spray,luis manuel pension 2024 025 [facility], [address] [place] [address], [id number], 03/27/2025 11:02:48 cetirizin e 10 mg tablet 2024 025 [facility], [address] [place] [address], [id number], 03/27/2025 11:02:49 ondansetr on 8 mg disintegr ating tablet 2024 025 [facility], [address] [place] [address], [id number], 03/27/2025 11:02:47 ibuprofen 800 mg tablet 2024 [facility], [address] [place] [address], [id number], 03/27/2025 11:02:50 cefdinir 300 mg capsule 2024 NEWBORN [facility], [address] [place] [address], [id number], 03/01/2025 16:38:31 atorvasta tin 40 mg tablet 2024 NEWBORN [facility], [address] [place] [address], [id number], 01/06/2025 13:02:25 Breztri Aerospher e 160 mcg-9mcg- 4.8mcg/ac tuation HFA aerosol inhaler 2024 NEWBORN [facility], [address] [place] [address], [id number], 01/05/2025 15:41:31 famotidin e 20 mg tablet 2024 025 NEWBORN [facility], [address] [place] [address], [id number], 01/06/2025 13:02:26 omeprazol e 20 mg capsule,d elayed release 2024 025 NEWBORN [facility], [address] [place] [address], [id number], 01/06/2025 13:02:28 sucralfat e 1 gram tablet 2024 025 NEWBORN [facility], [address] [place] [address], [id number], 01/06/2025 13:02:29 ondansetr on 8 mg disintegr ating tablet 2024 025 NEWBORN [facility], [address] [place] [address], [id number], 01/06/2025 13:02:31 hydroxyzi ne pamoate 50 mg capsule 2024 025 NEWBORN [facility], [address] [place] [address], [id number], 01/06/2025 13:02:26 Vraylar 3 mg capsule 2024 025 NEWBORN [facility], [address] [place] [address], [id number], 01/26/2025 11:02:13 lisinopri l 10 mg tablet 2024 025 NEWBORN [facility], [address] [place] [address], [id number], 01/05/2025 15:19:02 furosemid e 40 mg tablet 2024 025 NEWBORN [facility], [address] [place] [address], [id number], 01/06/2025 13:02:29 potassium chloride ER 10 mEq tablet,ex tended release 2024 025 NEWBORN Al[facility] Johns [facility], [address] [place] [address], [id number], 01/06/2025 13:02:30 levofloxa dawna 500 mg tablet 2024 025 NEWBORN [facility] Johns [facility], [address] [place] [address], [id number], 01/05/2025 14:22:05 ondansetr on 8 mg disintegr ating tablet 2024 025 [facility], [address] [place] [address], [id number], 12/29/2024 16:02:12 lisinopri l 10 mg tablet 2024 025 [facility], [address] [place] [address], [place], [place], [id number], 12/29/2024 16:02:12 Patient TargetsNo targets recorded. Patient Instructions Encounter Date Encounter Id Patient Instructions Last Modified By Organization Details Last Modified Time 12/29/2024 [id number] mammogram: about this test [email or web address] Not available 12/29/2024 16:02:12 painful urinatio n (dysuria): care instructions Not available 12/29/2024 16:02:12 high blood pressure: care instructions [email or web address] Not available 12/29/2024 16:02:12 learning about high blood pressure [email or web address] Not available 12/29/2024 16:02:12 03/01/2025 [id number] liver biopsy education [email or web address] Not available 03/02/2025 09:46:55 03/26/2025 [id number] upper respirator y infection (cold): care instructions Not available 03/26/2025 14:23:14 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 examination first available appt Referring Physician: Family Shayy Medicine, Encounter Date: 12/29/2024 Record Librarian Referral for Lesion of liver would like to have liver biopsy - did not have US or MRI Referring Physician: Family Shayy Medicine, Encounter Date: 03/01/2025 Results Created Date Observation Date Name Description Value Unit Range Abnormal Flag Note LastModifiedBy Organization Detail LastModifiedTime 12/30/1901/01/2025 TOXAS SURE FLEX 19, UR summary report FINAL ===== ===== ===== ===== ===== ===== ===== ===== ===== ===== ===== ===== ===== === Opiat e Class , MS, Ur RFX Metha done, MS, Ur RFX Fenta nyl, MS, Ur RFX ToxAs sure Flex 19, Ur ===== ===== ===== ===== ===== ===== ===== ===== ===== ===== ===== ===== ===== === Test Resul t Flag Units Drug Prese nt Oxaze abi 60 ng/mg creat Oxaze abi may be admin ister ed as a sched uled presc ripti on medic ation ; it is also an expec scott metab olite of other benzo diaze pine drugs , inclu ding diaze abi, chlor diaze poxid e, praze abi, clora zepat e, halaz epam, and temaz epam. Alpra zolam 53 ng/mg creat Alpha -hydr oxyal prazo martinez 162 ng/mg creat Sourc e of alpra zolam is a sched uled presc ripti on medic ation . Alpha -hydr oxyal prazo martinez is an expec scott metab olite of alpra zolam . Morph ine 157 ng/mg creat Poten tial sourc es of morph ine inclu de admin istra tion of codei ne or morph ine, use of heroi n, or inges tion of poppy seeds . Metha done 1543 ng/mg creat EDDP (Meth adone Mtb) >7752 ng/mg creat Sourc es of metha done inclu de sched uled presc ripti on medic ation s. EDDP is an expec scott metab olite of metha done. Fenta nyl 36 ng/mg creat Norfe ntany l 665 ng/mg creat Sourc e of fenta nyl is a sched uled presc ripti on medic ation , inclu ding IV, patch , and trans mucos al formu latio ns. Norfe ntany l is an expec scott metab olite of fenta nyl. ===== ===== ===== ===== ===== ===== ===== ===== ===== ===== ===== ===== ===== === Test Resul t Flag Units Ref Range Creat inine 129 mg/dL >=20 ===== ===== ===== ===== ===== ===== ===== ===== ===== ===== ===== ===== ===== === Decla red Medic ation s: Medic ation list was not provi ded. ===== ===== ===== ===== ===== ===== ===== ===== ===== ===== ===== ===== ===== === For clini jr consu ltati on, pleas e call . ===== ===== ===== ===== ===== ===== ===== ===== ===== ===== ===== ===== ===== === Not Available [facility] ([facility]) [address] [place], [address], 01/02/2025 18:07:52 12/30/19 25 01/01/2025 TOXAS SURE FLEX 19, UR pdf . Not Available [facility] ([facility]) [address] [place], [address], 01/02/2025 18:07:52 12/30/1901/01/2025 TOXAS SURE FLEX 19, UR creatinine 129 mg/dL REFER ENCE RANGE : Ref Range >=20 Not Available [facility] ([facility]) [address] [place], [address], 01/02/2025 18:07:52 12/30/1901/01/2025 TOXAS SURE FLEX 19, UR amphetamines ia Negati ve NG/mL cutoff :300 Not Available [facility] ([facility]) [address] [place], [address], 01/02/2025 18:07:52 12/30/19 25 01/01/2025 TOXAS SURE FLEX 19, UR benzodiazepi vee +POSIT SANGITA+ Not Available [facility] ([facility]) [address] [facility], [place], [address], 01/02/2025 18:07:52 12/30/19 25 01/01/2025 TOXAS SURE FLEX 19, UR diazepam Not Detect ed NG/mg _crea t Not Available [facility] ([facility]) [address] [place], [address], 01/02/2025 18:07:52 12/30/19 25 01/01/2025 TOXAS SURE FLEX 19, UR desmethyldia zepam Not Detect ed NG/mg _crea t Not Available [facility] ([facility]) [address] [facility], [place], [address], 01/02/2025 18:07:52 12/30/19 25 01/01/2025 TOXAS SURE FLEX 19, UR oxazepam 60 NG/mg _crea t Not Available [facility] ([facility]) [address] [place], [address], 01/02/2025 18:07:52 12/30/19 25 01/01/2025 TOXAS SURE FLEX 19, UR temazepam Not Detect ed NG/mg _crea t Expec scott metab olism of benzo diaze pine class drugs : Paren t Drug Detec scott Metab olite s ----- ----- - ----- ----- ----- ----- Diaze abi: Desme thyld iazep am, Temaz epam, Oxaze abi Chlor diaze poxid e: Desme thyld iazep am, Oxaze abi Clora zepat e: Desme thyld iazep am, Oxaze abi Halaz epam: Desme thyld iazep am, Oxaze abi Temaz epam: Oxaze abi Oxaze abi: None Not Available [facility] ([facility]) [address] [place], [address], 01/02/2025 18:07:52 12/30/19 25 01/01/2025 TOXAS SURE FLEX 19, UR alprazolam 53 NG/mg _crea t Not Available [facility] ([facility]) [address] [place], [address], 01/02/2025 18:07:52 12/30/19 25 01/01/2025 TOXAS SURE FLEX 19, UR alpha-hydrox yalprazolam 162 NG/mg _crea t Not Available [facility] ([facility]) [address] [place], [address], 01/02/2025 18:07:52 12/30/19 25 01/01/2025 TOXAS SURE FLEX 19, UR desalkylflur azepam Not Detect ed NG/mg _crea t Not Available [facility] ([facility]) [address] [place], [address], 01/02/2025 18:07:52 12/30/19 25 01/01/2025 TOXAS SURE FLEX 19, UR lorazepam Not Detect ed NG/mg _crea t Not Available [facility] ([facility]) [address] [place], [address], 01/02/2025 18:07:52 12/30/19 25 01/01/2025 TOXAS SURE FLEX 19, UR alpha-hydrox ytriazolam Not Detect ed NG/mg _crea t Not Available [facility] ([facility]) [address] [place], [address], 01/02/2025 18:07:52 12/30/19 25 01/01/2025 TOXAS SURE FLEX 19, UR clonazepam Not Detect ed NG/mg _crea t Not Available [facility] ([facility]) [address] [place], [address], 01/02/2025 18:07:52 12/30/19 25 01/01/2025 TOXAS SURE FLEX 19, UR 7-aminoclona zepam Not Detect ed NG/mg _crea t Not Available [facility] ([facility]) [address] [place], [address], 01/02/2025 18:07:52 12/30/19 25 01/01/2025 TOXAS SURE FLEX 19, UR midazolam Not Detect ed NG/mg _crea t Not Available [facility] ([facility]) [address] [place], [address], 01/02/2025 18:07:52 12/30/19 25 01/01/2025 TOXAS SURE FLEX 19, UR alpha-hydrox ymidazolam Not Detect ed NG/mg _crea t Not Available [facility] ([facility]) [address] [place], [address], 01/02/2025 18:07:52 12/30/19 25 01/01/2025 TOXAS SURE FLEX 19, UR flunitrazepa m Not Detect ed NG/mg _crea t Not Available [facility] ([facility]) [address] [place], [address], 01/02/2025 18:07:52 12/30/19 25 01/01/2025 TOXAS SURE FLEX 19, UR desmethylflu nitrazepam Not Detect ed NG/mg _crea t Not Available [facility] ([facility]) [address] [place], [address], 01/02/2025 18:07:52 12/30/19 25 01/01/2025 TOXAS SURE FLEX 19, UR cocaine metabolite ia Negati ve NG/mL cutoff :150 Not Available [facility] ([facility]) [address] [place], [address], 01/02/2025 18:07:52 12/30/19 25 01/01/2025 TOXAS SURE FLEX 19, UR ethanol biomarkers ia Negati ve NG/mL cutoff :500 Not Available [facility] ([facility]) [address] [place], [address], 01/02/2025 18:07:52 12/30/19 25 01/01/2025 TOXAS SURE FLEX 19, UR cannabinoids ia Negati ve NG/mL cutoff :20 Not Available [facility] ([facility]) [address] [place], [address], 01/02/2025 18:07:52 12/30/19 25 01/01/2025 TOXAS SURE FLEX 19, UR 6-acetylmorp delroy ia Negati ve NG/mL cutoff :10 Not Available [facility] ([facility]) [address] [place], [address], 01/02/2025 18:07:52 12/30/19 25 01/01/2025 TOXAS SURE FLEX 19, UR opiate class ia COMMEN T NG/mL cutoff :100 Furth er testi ng indic ated Not Available [facility] ([facility]) [address] [place], [address], 01/02/2025 18:07:52 12/30/19 25 01/01/2025 TOXAS SURE FLEX 19, UR oxycodone class ia Negati ve NG/mL cutoff :100 Not Available [facility] ([facility]) [address] [place], [address], 01/02/2025 18:07:52 12/30/19 25 01/01/2025 TOXAS SURE FLEX 19, UR methadone ia COMMEN T NG/mL cutoff :100 Furth er testi ng indic ated Not Available [facility] ([facility]) [address] [place], [address], 01/02/2025 18:07:52 12/30/19 25 01/01/2025 TOXAS SURE FLEX 19, UR methadone mtb ia COMMEN T NG/mL cutoff :100 Furth er testi ng indic ated Not Available [facility] ([facility]) [address] [place], [address], 01/02/2025 18:07:52 12/30/19 25 01/01/2025 TOXAS SURE FLEX 19, UR buprenorphin e ia Negati ve NG/mL cutoff :5.0 Not Available [facility] ([facility]) [address] [place], [address], 01/02/2025 18:07:52 12/30/19 25 01/01/2025 TOXAS SURE FLEX 19, UR fentanyl ia COMMEN T NG/mL cutoff :2.0 Furth er testi ng indic ated Not Available [facility] ([facility]) [address] [place], [address], 01/02/2025 18:07:52 12/30/19 25 01/01/2025 TOXAS SURE FLEX 19, UR tapentadol ia Negati ve NG/mL cutoff :200 Not Available [facility] ([facility]) [address] [place], [address], 01/02/2025 18:07:52 12/30/19 25 01/01/2025 TOXAS SURE FLEX 19, UR propoxyphene ia Negati ve NG/mL cutoff :300 Not Available [facility] ([facility]) [address] [place], [address], 01/02/2025 18:07:52 12/30/19 25 01/01/2025 TOXAS SURE FLEX 19, UR tramadol ia Negati ve NG/mL cutoff :200 Not Available [facility] ([facility]) [address] [place] [address], [address], 01/02/2025 18:07:52 12/30/19 25 01/01/2025 TOXAS SURE FLEX 19, UR methylphenid ate ia Negati ve NG/mL cutoff :100 Not Available [facility] ([facility]) [address] [place], [address], 01/02/2025 18:07:52 12/30/19 25 01/01/2025 TOXAS SURE FLEX 19, UR barbiturates ia Negati ve NG/mL cutoff :200 Not Available [facility] ([facility]) [address] [place], [address], 01/02/2025 18:07:52 12/30/19 25 01/01/2025 TOXAS SURE FLEX 19, UR phencyclidin e ia Negati ve NG/mL cutoff :25 Not Available [facility] ([facility]) [address] [place], [address], 01/02/2025 18:07:52 12/30/19 25 01/01/2025 TOXAS SURE FLEX 19, UR gabapentin ia Negati ve ug/mL cutoff :1.0 Not Available [facility] ([facility]) [address] [place], [address], 01/02/2025 18:07:52 12/30/19 25 01/01/2025 TOXAS SURE FLEX 19, UR anticonvulsa nts Negati ve Not Available [facility] ([facility]) [address] [place], [address], 01/02/2025 18:07:52 12/30/19 25 01/01/2025 TOXAS SURE FLEX 19, UR pregabalin Not Detect ed Not Available [facility] ([facility]) [address] [place], [address], 01/02/2025 18:07:52 12/30/19 25 01/01/2025 TOXAS SURE FLEX 19, UR carisoprodol ia Negati ve NG/mL cutoff :100 Not Available [facility] ([facility]) [address] [place], [address], 01/02/2025 18:07:52 12/30/19 25 01/01/2025 OPIAT E CLASS , MS, UR RFX opiate class +POSIT SANGITA+ Not Available [facility] ([facility]) [address] [place], [address], 01/02/2025 18:07:52 12/30/19 25 01/01/2025 OPIAT E CLASS , MS, UR RFX codeine Not Detect ed NG/mg _crea t Not Available [facility] ([facility]) [address] [place], [address], 01/02/2025 18:07:52 12/30/19 25 01/01/2025 OPIAT E CLASS , MS, UR RFX morphine 157 NG/mg _crea t Not Available [facility] ([facility]) [address] [place], [address], 01/02/2025 18:07:52 12/30/19 25 01/01/2025 OPIAT E CLASS , MS, UR RFX normorphine Not Detect ed NG/mg _crea t Not Available [facility] ([facility]) [address] [place], [address], 01/02/2025 18:07:52 12/30/19 25 01/01/2025 OPIAT E CLASS , MS, UR RFX norcodeine Not Detect ed NG/mg _crea t Not Available [facility] ([facility]) [address] [place], [address], 01/02/2025 18:07:52 12/30/19 25 01/01/2025 OPIAT E CLASS , MS, UR RFX hydrocodone Not Detect ed NG/mg _crea t Not Available [facility] ([facility]) [address] [place], [address], 01/02/2025 18:07:52 12/30/19 25 01/01/2025 OPIAT E CLASS , MS, UR RFX hydromorphon e Not Detect ed NG/mg _crea t Not Available [facility] ([facility]) [address] [place], [address], 01/02/2025 18:07:52 12/30/19 25 01/01/2025 OPIAT E CLASS , MS, UR RFX dihydrocodei ne Not Detect ed NG/mg _crea t Not Available [facility] ([facility]) [address] [place], [address], 01/02/2025 18:07:52 12/30/19 25 01/01/2025 OPIAT E CLASS , MS, UR RFX norhydrocodo ne Not Detect ed NG/mg _crea t Expec scott metab olism of opiat e class drugs : Paren t Drug Detec scott Metab olite s ----- ----- - ----- ----- ----- ----- Codei ne: Major : Morph ine, [place] deine Minor : [place] codon e, [place] morph one, Dihyd rocod eine, Norhy droco done, Normo rphin e Morph ine: Major : Normo rphin e Minor : [place] morph one [place] codon e: [place] morph one, Dihyd rocod eine, Norhy droco done [place] morph one: None Dihyd rocod eine: None Heroi n: 6-Micah tylmo rphin e (if inclu ded), Morph ine, Normo rphin e Codei ne, in small amoun ts in [place] to morph ine, is often detec scott when heroi n is the sourc e drug. Not Available [facility] ([facility]) [address] [facility], [place], [address], 01/02/2025 18:07:52 12/30/19 25 12/30/2024 CT, NG, TRICH VAG BY CHANEL chlamydia by CHANEL Negati ve negati ve Not Available [facility] ([facility]) [address] [place], [address], 01/02/2025 18:07:53 12/30/19 25 12/30/2024 CT, NG, TRICH VAG BY CHANEL gonococcus by CHANEL Negati ve negati ve Not Available [facility] ([facility]) [address] [place], [address], 01/02/2025 18:07:53 12/30/19 25 12/30/2024 CT, NG, TRICH VAG BY CHANEL trich vag by CHANEL Negati ve negati ve Not Available [facility] ([facility]) [address] [place], [address], 01/02/2025 18:07:53 12/30/19 25 01/01/2025 METHA DONE, MS, UR RFX methadone +POSIT SANGITA+ Not Available [facility] ([facility]) [address] [place], [address], 01/02/2025 18:07:53 12/30/19 25 01/01/2025 METHA DONE, MS, UR RFX methadone 1543 NG/mg _crea t Not Available [facility] ([facility]) [address] [place], [address], 01/02/2025 18:07:53 12/30/19 25 01/01/2025 METHA DONE, MS, UR RFX EDDP (methadone mtb) >7752 NG/mg _crea t Not Available [facility] ([facility]) [address] [place], [address], 01/02/2025 18:07:53 12/30/19 25 01/01/2025 FENTA NYL, MS, UR, RFX fentanyl / analogues +POSIT SANGITA+ Not Available [facility] ([facility]) [address] [place], [address], 01/02/2025 18:07:54 12/30/19 25 01/01/2025 FENTA NYL, MS, UR, RFX fentanyl 36 NG/mg _crea t Not Available [facility] ([facility]) [address] [place], [address], 01/02/2025 18:07:54 12/30/19 25 01/01/2025 FENTA NYL, MS, UR, RFX norfentanyl 665 NG/mg _crea t Not Available [facility] ([facility]) [address] [place], [address], 01/02/2025 18:07:54 12/30/1901/02/2025 URINE CULTU RE, ROUTI NE urine culture, routine Final report abnormal Not Available [facility] ([facility]) [address] [place], [address], 01/02/2025 18:07:54 12/30/1901/02/2025 URINE CULTU RE, ROUTI NE result 1 Klebsi zee pneumo niae abnormal Cefaz misael with an MCKINLEY <=16 predi cts susce ptibi lity to the oral agent s cefac hector, cefdi delgado, cefpo doxim e, cefpr ozil, cefur oxime , cepha lexin , and lorac arbef when used for thera py of uncom plica scott urina ry tract infec tions due to E. coli, Klebs iella pneum oniae , and Prote us mirab ilis. 10,00 0-25, 000 colon y formi ng units per mL Not Available [facility] ([facility]) [address] [place], [address], 01/02/2025 18:07:54 12/30/1901/02/2025 URINE CULTU RE, ROUTI NE antimicrobia l susceptibili ty Commen t S = Susce ptibl e; I = Inter media te; R = Resis tant P = Posit sangita; N = Negat sangita MICS are expre ssed in micro grams per mL Antib iotic RSLT# 1 RSLT# 2 RSLT# 3 RSLT# 4 Amoxi cilli n/Cla vulan ic Acid S Ampic illin R Cefaz misael S Cefep jeanna S Cefox itin S Cefpo doxim e S Ceftr iaxon e S Cipro floxa dawna S Ertap enem S Genta micin S Levof loxac in S Merop enem S Nitro furan toin S Piper acill in/Ta zobac gasca S Tetra cycli ne S Tobra mycin S Trime thopr im/Castro lfa S Not Available [facility] ([facility]) [address] [facility], [place], [address], 01/02/2025 18:07:54 12/30/19 25 12/29/2024 urina lysis , dipst ick Leukocytes Negati ve Not Available [address], [address], 12/29/2024 13:23:05 12/30/19 25 12/29/2024 urina lysis , dipst ick Nitrite negati ve Not Available [address], [address], 12/29/2024 13:23:05 12/30/19 25 12/29/2024 urina lysis , dipst ick Urobilinogen .2 Not Available [address], [address], 12/29/2024 13:23:05 12/30/19 25 12/29/2024 urina lysis , dipst ick Protein Negati ve Not Available [address], [address], 12/29/2024 13:23:05 12/30/19 25 12/29/2024 urina lysis , dipst ick pH 7.5 Not Available [address], [address], 12/29/2024 13:23:05 12/30/19 25 12/29/2024 urina lysis , dipst ick Blood Negati ve Not Available [address], [place], [address], 12/29/2024 13:23:05 12/30/19 25 12/29/2024 urina lysis , dipst ick Specific Adger 1.025 Not Available [address], [place], [address], 12/29/2024 13:23:05 12/30/19 25 12/29/2024 urina lysis , dipst ick Ketone Negati ve Not Available [address], [place], [address], 12/29/2024 13:23:05 12/30/19 25 12/29/2024 urina lysis , dipst ick Bilirubin Negati ve Not Available [address], [place], [address], 12/29/2024 13:23:05 12/30/19 25 12/29/2024 urina lysis , dipst ick Glucose Negati ve Not Available [address], [place], [address], 12/29/2024 13:23:05 12/30/19 25 12/29/2024 urina lysis , dipst ick Appearance Clear Not Available [address], [place], [address], 12/29/2024 13:23:05 12/30/19 25 12/29/2024 urina lysis , dipst ick Color Pale Yellow Not Available [address], [place], [address], 12/29/2024 13:23:05 01/05/20 25 01/07/2025 CT, NG, TRICH VAG BY CHANEL chlamydia by CHANEL Negati ve negati ve Not Available [facility] ([facility]) [address] [place], [address], 01/07/2025 06:21:40 01/05/2001/07/2025 CT, NG, TRICH VAG BY CHANEL gonococcus by CHANEL Negati ve negati ve Not Available [facility] ([facility]) [address] [facility], [place], [address], 01/07/2025 06:21:40 01/05/2001/07/2025 CT, NG, TRICH VAG BY CHANEL trich vag by CHANEL Negati ve negati ve Not Available [facility] ([facility]) [address] [place], [address], 01/07/2025 06:21:40 03/26/20 25 03/26/2025 rapid flu (A+B) Flu A negati ve Not Available [address], [address], 03/26/2025 13:47:39 03/26/2003/26/2025 rapid flu (A+B) Flu B negati ve Not Available [address], [address], 03/26/2025 13:47:39 03/02/20 25 04/12/2024 CT, abdom en + pelvi s, w/o contr ast No observ ation record ed. [email or web address] [facility] (Med Record) [address], [place], [place], [address], 03/02/2025 09:41:36 Result Notes None recorded. Problems Name Problem SNOMED Code Status Onset Date Resolution Date Notes Provider Name and Address Organization Details Recorded Time Primary insomnia 0388801 Completed 201710/24/2017 Problem Code: F51.01; Problem Code Type: ICD-10; Not Available [facility] 2 22:09:15 Acute laryngop haryngit is 34073323 Completed 201712/09/2017 Problem Code: J06.0; Problem Code Type: ICD-10; Not Available [facility] 2 22:09:21 Transien t insomnia 940161661 Completed 201710/24/2017 Problem Code: 307.41; Problem Code Type: ICD-9; Not Available [facility] 22:09:24 Acute upper respirat ory infectio n of multiple sites Completed 201712/09/2017 Problem Code: 465.8; Problem Code Type: ICD-9; Not Available [facility] 2 22:09:24 Depressi ve disorder 90795397 Completed 201705/15/2021 Problem Code: 311; Problem Code Type: ICD-9; Not Available [facility] 2 22:09:27 Pain in finger 37832609 Completed 201705/10/2019 Not Available [facility] 2 22:09:24 Pain in limb 95125300 Completed 201705/15/2021 Problem Code: 729.5; Problem Code Type: ICD-9; Not Available [facility] 22:09:27 Cough 17008419 Completed 201708/22/2018 Problem Code: R05; Problem Code Type: ICD-10; Not Available [facility] 2 22:09:18 Acquired hemolyti c anemia 2112737 Completed 201705/10/2019 Problem Code: D59.8; Problem Code Type: ICD-10; Not Available [facility] 22:09:15 Abnormal weight gain 129827925 Completed 201708/23/2018 Problem Code: R63.5; Problem Code Type: ICD-10; Not Available [facility] 2 22:09:20 Acute maxillar y sinusiti s 97952720 Completed 201708/23/2018 Problem Code: J01.00; Problem Code Type: ICD-10; Not Available [facility] 2 22:09:21 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 5 14:34:23 Pain in finger 67857117 Completed 201705/10/2019 Not Available [facility] 2 22:09:23 Pain in limb 09073581 Completed 201705/15/2021 Problem Code: 729.5; Problem Code Type: ICD-9; Not Available [facility] 2 22:09:25 Iron deficien cy anemia secondar y to inadequa te dietary iron intake 183822677 Completed 201709/09/2018 Problem Code: D50.8; Problem Code Type: ICD-10; Not Available [facility] 2 22:09:15 Mixed hyperlip idemia 735962813 Active 2017 Problem Code: E78.2; Problem Code Type: ICD-10; HÉCTOR Lucas [address] [place], [address] , [employer] 5 14:34:23 Acute pharyngi tis 356977322 Completed 201709/09/2018 Problem Code: J02.8; Problem Code Type: ICD-10; Not Available [facility] 2 22:09:15 Acute laryngop haryngit is 50077716 Completed 201707/25/2018 Problem Code: J06.0; Problem Code Type: ICD-10; Not Available [facility] 2 22:09:15 Acute upper respirat ory infectio n of multiple sites Completed 201707/25/2018 Problem Code: 465.8; Problem Code Type: ICD-9; Not Available [facility] 2 22:09:25 Primary insomnia 5519409 Completed 201805/10/2019 Problem Code: F51.01; Problem Code Type: ICD-10; Not Available [facility] 2 22:09:15 Acute bronchit is 70464860 Active 2018 Problem Code: J20.8; Problem Code Type: ICD-10; Not Available [facility] 2 22:09:16 Cough 06319654 Active 2018 Problem Code: R05; Problem Code Type: ICD-10; Not Available [facility] 2 22:09:18 Upper abdomina l pain 07602767 Completed 201805/10/2019 Not Available [facility] 2 22:09:18 Urinary tract infectio us disease 68631049 Active 2018 Problem Code: N39.0; Problem Code Type: ICD-10; Not Available [facility] 2 22:09:17 Tenderne ss of right upper quadrant of abdomen 596389402 Active 2018 Problem Code: R10.811; Problem Code Type: ICD-10; Not Available [facility] 2 22:09:19 Acute sinusiti s 15268734 Completed 201805/10/2019 Problem Code: J01.90; Problem Code Type: ICD-10; Not Available [facility] 2 22:09:15 Pain of left lower leg 49449922099 9101 Completed 201809/21/2019 Problem Code: M79.662; Problem Code Type: ICD-10; Not Available [facility] 2 22:09:17 Chest pain on breathin g 079090763 Active 2018 Problem Code: R07.1; Problem Code Type: ICD-10; Not Available [facility] 2 22:09:18 Breast lump 20285057 Active 2018 Problem Code: N63.0; Problem Code Type: ICD-10; Not Available [facility] 2 22:09:18 Infectio n by Trichomo daniella [id number] Completed 201909/21/2019 Problem Code: A59.9; Problem Code Type: ICD-10; Not Available [facility] 2 22:09:15 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 63679617 Active 2019 Problem Code: D51.8; Problem Code Type: ICD-10; Not Available [facility] 2 22:09:15 Vitamin D deficien cy 95806373 Active 2019 Problem Code: E55.9; Problem Code Type: ICD-10; Not Available [facility] 2 22:09:15 Dizzines s and giddines s 957284295 Completed 201905/15/2021 Problem Code: R42; Problem Code Type: ICD-10; Not Available [facility] 2 22:09:19 Chronic fatigue syndrome 79943731 Completed 201905/15/2021 Problem Code: R53.82; Problem Code Type: ICD-10; Not Available [facility] 2 22:09:20 Body mass index 20-24 - normal 805141046 Active 2019 Not Available [facility] 2 22:09:21 Pain of shoulder region 26327340 Active 2019 Not Available [facility] 2 22:09:17 Body mass index 20-24 - normal 694190849 Completed 201911/29/2020 Not Available [facility] 2 22:09:26 Pruritus of vulva 09585317 Active 2019 Problem Code: L29.2; Problem Code Type: ICD-10; Not Available [facility] 2 22:09:16 Effusion of joint of hand 78692085 Active 2019 Problem Code: M25.449; Problem Code Type: ICD-10; Not Available [facility] 22:09:16 Polyalgi a 157702571 Completed 201911/29/2020 Problem Code: M79.89; Problem Code Type: ICD-10; Not Available [facility] 2 22:09:17 Screenin g for malignan t neoplasm of cervix Completed 201911/29/2020 Problem Code: Z12.4; Problem Code Type: ICD-10; Not Available [facility] 22:09:20 Nicotine dependen ce 21937969 Active 2020 Problem Code: F17.200; Problem Code Type: ICD-10; Not Available [facility] 2 22:09:15 Foot joint - soft tissue swelling 436811722 Active 2020 Not Available [facility] 22:09:16 Ankle joint effusion 920155778 Completed 202005/15/2021 Not Available [facility] 22:09:16 Chronic fatigue syndrome 37874518 Completed 202005/15/2021 Problem Code: R53.82; Problem Code Type: ICD-10; Not Available [facility] 2 22:09:19 [facility] index 25-29 [facility] 49416[facility] Completed 202005/15/2021 Problem Code: Z68.27; Problem Code Type: ICD-10; Not Available [facility] 2 22:09:22 Vipul son type IIa hyperlip oprotein emia 860132307 Active 2020 Problem Code: E78.00; Problem Code Type: ICD-10; Not Available [facility] 22:09:15 Body mass index 25-29 - overweig 069676561 Completed 202008/14/2021 Problem Code: Z68.28; Problem Code Type: ICD-10; Not Available [facility] 2 22:09:22 Viral screenin g Completed 202008/14/2021 Problem Code: Z11.59; Problem Code Type: ICD-10; Not Available [facility] 22:09:20 Abdomina l pain 45291037 Completed 202011/30/2021 Problem Code: R10.9; Problem Code Type: ICD-10; Not Available [facility] 22:09:19 Vomiting 111143768 Completed 202011/30/2021 Not Available [facility] 22:09:19 Edema 859770977 Active 2020 Not Available [facility] 22:09:20 Chronic obstruct sangita pulmonar y disease 06832782 Active 2021 Problem Code: J44.9; Problem Code Type: ICD-10; Not Available [facility] 22:09:16 Dyspnea 094281393 Active 2021 Problem Code: R06.00; Problem Code Type: ICD-10; Not Available [facility] 22:09:18 Pain in limb 25740302 Active 2021 Not Available [facility] 22:09:23 Acute urinary tract infectio n 898984777 Active 2024 HÉCTOR Lucas [address] [place] [address], [address] , [employer] 5 13:42:29 Essentia l hyperten irene 28621105 Active 2024 HÉCTOR Lucas [address] [place] [address], [address] , [employer] 5 13:42:42 Steatoti c liver disease 783244640 Active 2024 HÉCTOR Lucas [address] [place] [address], [address] , [employer] 5 15:05:03 Mixed simple and mucopuru lent chronic bronchit is 686915136 Active 2024 HÉCTOR Lucas [address] [place] [address], [address] [place] [address] , [employer] 14:34:36 Gastro-e sophagea l reflux disease with esophagi tis 834074787 Active 2024 HÉCTOR Lucas [address] [place] [address], [address] [place] [address] , [place] [employer] 14:35:04 Localize d edema 716692559 Active 2024 HÉCTOR Lucas [address] [place] [address], [address] [place] [address] , [employer] 14:35:16 Anxiety 01921288 Active 2024 HÉCTOR Lucas [address] [place] [address], [address] [place] [address] , [employer] 14:35:47 Lesion of liver 844024688 Active 2024 HÉCTOR Lucas [address] [place] [address], [address] [place] [address] , [employer] 16:44:06 Nodule of liver 425401066 Active 2024 HÉCTOR Lucas [address] [place] [address], [address] [place] [address] , [employer] 16:46:35 Sensatio n of blocked ear 038722630 Active 2024 ERICKA TRIMBLE NP [address] [place] [address], [address] [place] [address] , [employer] 15:14:27 Generali zed aches and pains 78554783 Active 2024 ERICKA TRIMBLE NP [address] [place] [address], [address] [place] [address] , [employer] 14:21:45 Upper respirat ory infectio n 92357857 Active 2024 ERICKA TRIMBLE NP [address] [place] [address], [address] [place] [address] , [employer] 5 14:22:10 Notes:*Problem Name: [place] m of uncertain behavior of liver, gallbladder and bile ducts *Problem Status: Chronic *Comments: *Problem Code: D37.6 *Problem Code Type: ICD-10 *Note Date: 06/24/2018 Problem Notes None recorded. Procedures Surgical History Date Name Laterality Status Provider Name and Address Organization Details Recorded Time 8 section completed Not Available [facility] 05/08/2022 22:56:11 8 ligation of bilateral fallopian tubes completed Not Available [facility] 05/08/2022 22:56:14 Imaging Results None recorded. Procedure Notes None recorded. Medical Equipment None Reported. Allergies Allergen ID Allergen Name Allergen Category Reaction Reaction Severity Criticality Documentation Date Start Date Code Code System Note Provider Name and Address Organization Details Recorded Time 02908 Product containin g penicilli n (product) medicatio n rash Not available Not available 05/08/2022 26341 8001 SNOMED [employer] 5 14:13:52 60668 Zithromax medicatio n Not available Not available Not available 05/08/2022 09084 4 RxNorm Sepior, [employer] 5 13:09:05 58477 doxycycli ne Not available rash Not available Not available 05/08/2022 3640 RxNorm Not Available [facility] 2 22:55:12 22992 codeine sulfate medicatio n itching nausea rash Not available Not available Not available Not available 05/08/2022 43209 RxNorm Not Available [facility] 2 22:55:12 Medications Name Sig Start Date Stop Date Status Note LastModified by Organization Details LastModified Time furosemide 40 mg tablet TAKE 1 TABLET 1 TIME EACH DAY 2024 active Not Available Not Available Not Avai lable atorvastati n 40 mg tablet TAKE 1 TABLET 1 TIME EACH DAY IN THE EVENING 2024 active Not Available Not Available Not Avai lable potassium chloride ER 10 mEq capsule,ext ended release TAKE 1 CAPSULE 1 TIME EACH DAY 12/29 completed Not Available Not Available Not Available clonidine HCl 0.1 mg tablet TAKE 1 TABLET EVERY 12 HOURS 12/29 completed Not Available Not Available Not Available ropinirole 1 mg tablet take 1 tablet (1 mg) by oral route 1-3 hours before bedtime 12/29 completed Not Available Not Available Not Available ipratropium 0.5 mg-albutero l 3 mg (2.5 mg base)/3 mL nebulizatio n soln inhale 3 millilite rs by nebulizat ion route 4 times per day and as needed, up to 6 doses per day 12/29 completed Not Available Not Available Not Available clindamycin HCl 300 mg capsule TAKE 1 CAPSULE EVERY 6 HOURS 12/29 completed Not Available Not Available Not Available albuterol sulfate 2.5 mg/3 mL (0.083 %) solution for nebulizatio n inhale 3 millilite rs (2.5 mg) by nebulizat ion route 4 times per day as needed 12/29 completed Not Available Not Available Not Available citalopram 40 mg tablet TAKE 1 TABLET 1 TIME EACH DAY 12/29 completed Not Available Not Available Not Available cetirizine 10 mg tablet Take 1 tablet every day by oral route. 2024 active Not Available Not Available Not Avai lable azithromyci n 250 mg tablet TAKE 2 TABLETS ON THE FIRST DAY, THEN TAKE 1 TABLET EACH DAY ON THE NEXT 4 DAYS. active Not Available Not Available No t Available ibuprofen 800 mg tablet take 1 tablet (800 mg) by oral route 3 times per day with food as needed 2024 active Not Available Not Available Not Avai lable ondansetron HCl 8 mg tablet TAKE 1 TABLET EVERY 6 TO 8 HOURS NEEDED FOR VOMITTING 05/15 completed Not Available Not Available Not Available sucralfate 1 gram tablet TAKE 1 TABLET 1 TIME EACH DAY 2024 active Not Available Not Available Not Avai lable promethazin e 12.5 mg tablet TAKE 1 TABLET 3 TIMES EACH DAY NEEDED FOR ALLERGY SYMPTOMS. TAKE LAST DOSE NO LATER THAN 4 HOURS BEFORE BEDTIME 12/29 completed Not Available Not Available Not Available prednisone 20 mg tablet TAKE 1 TABLET 2 TIMES EACH DAY FOR 5 DAYS active Not Available Not Available No t Available gabapentin 400 mg capsule TAKE 1 CAPSULE 3 TIMES EACH DAY 12/29 completed Not Available Not Available Not Available prednisone 5 mg tablet 10 pills po today and decrease by one pill each day 11/20 completed Not Available Not Available Not Available clindamycin HCl 150 mg capsule TAKE TWO CAPSULES NOW THEN TAKE 1 CAPSULE 4 TIMES EACH DAY UNTIL GONE 12/29 completed Not Available Not Available Not Available Diflucan 150 mg tablet one pill po x 1 dose 10/22 completed Not Available Not Available Not Available hydroxyzine pamoate 50 mg capsule Take 1 capsule 4 times a day by oral route for 30 days. 2024 active Not Available Not Available Not Avai lable potassium chloride ER 10 mEq tablet,exte nded release Take 2 tablets every day by oral route for 30 days. 2024 active Not Available Not Available Not Avai lable metronidazo le 500 mg tablet take 4 tablets (2 gram) by oral route once 12/29 completed Not Available Not Available Not Available hydroxyzine HCl 50 mg tablet TAKE 1 TABLET EVERY 8 HOURS NEEDED FOR ANXIETY AND INSOMNIA. 12/29 completed Not Available Not Available Not Available dextrometho rphan-guaif enesin 10 mg-100 mg/5 mL oral syrup Take 1 teaspoon by mouth q4h prn for cough 09/09 completed Not Available Not Available Not Available ciprofloxac in 500 mg tablet TAKE 1 TABLET 2 TIMES EACH DAY FOR 7 DAYS 12/29 completed Not Available Not Available Not Available sulfamethox azole 800 mg-trimetho prim 160 mg tablet TAKE 1 TABLET 2 TIMES EACH DAY FOR 7 DAYS 12/29 completed Not Available Not Available Not Available aspirin 81 mg tablet,laura yed release TAKE 1 TABLET 1 TIME EACH DAY active Not Available Not Available No t Available amitriptyli ne 50 mg tablet 1 or 2 po at qhs 11/21 completed Not Available Not Available Not Available ondansetron 8 mg disintegrat ing tablet Place 1 tablet 3 times a day by transling ual route for 10 days, for nausea/vo miting. 2024 active Not Available Not Available Not Avai lable ketorolac 10 mg tablet TAKE 1 TABLET EVERY 4 HOURS NEEDED. DO NOT EXCEED 40MG IN 24 HOURS 12/29 completed Not Available Not Available Not Available Aleve 220 mg tablet Take 1 tablet(s) by mouth q12h prn for pain 08/20 completed Not Available Not Available Not Available citalopram 20 mg tablet TAKE 1 TABLET 1 TIME EACH DAY. 05/15 completed Not Available Not Available Not Available famotidine 20 mg tablet Take 1 tablet twice a day by oral route. 2024 active Not Available Not Available Not Avai lable phenazopyri dine 100 mg tablet TAKE 2 TABLETS EVERY 8 HOURS 12/29 completed Not Available Not Available Not Available ferrous sulfate 325 mg (65 mg iron) tablet take 1 tablet (325 mg) by oral route 2 times per day 11/29 completed Not Available Not Available Not Available lisinopril 10 mg tablet Take 1 tablet every day by oral route for 90 days. 2024 active Not Available Not Available Not Avai lable promethazin e 25 mg tablet TAKE 1 TABLET EVERY 6 HOURS NEEDED 12/29 completed Not Available Not Available Not Available ibuprofen 400 mg tablet TAKE 1 TABLET EVERY 8 HOURS NEEDED 03/01 completed Not Available Not Available Not Available omeprazole 20 mg capsule,del ayed release TAKE 1 CAPSULE 1 TIME EACH DAY 2024 active Not Available Not Available Not Avai lable furosemide 20 mg tablet TAKE 1 TABLET 1 TIME EACH DAY 12/29 completed Not Available Not Available Not Available levofloxaci n 500 mg tablet TAKE 1 TABLET 1 TIME EACH DAY FOR 7 DAYS 01/05 completed Not Available Not Available Not Available ondansetron 4 mg disintegrat ing tablet PLACE 1 TABLET UNDER THE TONGUE AND ALLOW TO DISSOLVE EVERY 8 HOURS NEEDED FOR NAUSEA 12/29 completed Not Available Not Available Not Available cefdinir 300 mg capsule TAKE 1 CAPSULE EVERY 12 HOURS FOR 10 DAYS 03/01 completed Not Available Not Available Not Available fluticasone propionate 50 mcg/actuati on nasal spray,suspe nsion [place] 1 spray every day by intranasa l route. 2024 active Not Available Not Available Not Avai lable dicyclomine 10 mg capsule TAKE 1 CAPSULE 2 TIMES EACH DAY 12/29 completed Not Available Not Available Not Available esomeprazol e magnesium 20 mg capsule,del ayed release TAKE 1 CAPSULE 1 TIME EACH DAY. 12/29 completed Not Available Not Available Not Available buprenorphi ne 8 mg-naloxone [address] 2 TABLETS UNDER THE TONGUE AND ALLOW TO DISSOLVE 1 TIME EACH DAY 12/29 completed Not Available Not Available Not Available cyclobenzap rine 5 mg tablet take 1 tablet (5 mg) by oral route 3 times per day 12/08 completed Not Available Not Available Not Available nitrofurant oin monohydrate /macrocryst als 100 mg capsule TAKE 1 CAPSULE 2 TIMES EACH DAY WITH A MEAL 12/29 completed Not Available Not Available Not Available chlorhexidi ne gluconate 0.12 % mouthwash SWISH AND SPIT 15ML (TO THE LINE INSIDE THE LID) FOR 30 SECONDS 3 TIMES EACH DAY 12/29 completed Not Available Not Available Not Available aspirin 12/29 completed Not Available Not Available Not Available albuterol 11/29 completed Not Available Not Available Not Available methadone active Not Available Not Karley ilable Not Available omeprazole 05/08 completed Not Available Not Available Not Available Lasix 09/22 completed Not Available Not Available Not Available Vitamin D3 11/29 completed Not Available Not Available Not Available gabapentin 11/29 completed Not Available Not Available Not Available ProAir HFA 90 mcg/actuati on aerosol inhaler INHALE 2 PUFFS EVERY 4 TO 6 HOURS NEEDED FOR WHEEZING AND SHORTNESS OF BREATH 12/29 completed Not Available Not Available Not Available budesonide- formoterol HFA 80 mcg-4.5 mcg/actuati on aerosol inhaler inhale 2 puffs by inhalatio n route 2 times per day in the morning andevenin g 12/29 completed Not Available Not Available Not Available Breo Ellipta 11/29 completed Medic ation ID: ''; Medic ation Name: 'Breo Ellip ta'; Genia ptTyp e: ''; Not Available Not Available Not Available potassium chloride ER 20 mEq tablet,exte nded release take 1 tablet (20 meq) by oral route 1 time per day with food. give with lasix x3 days 05/15 completed Not Available Not Available Not Available guaifenesin ER 600 mg tablet, extended release 12 hr Take 1 tablet every 12 hours by oral route for 5 days. 04/07 completed Not Available Not Available Not Available fluticasone furoate 200 mcg-vilante rol 25 mcg/dose inhalation powder inhale 1 puff by inhalatio n route once daily at the same time each day 11/30 completed Not Available Not Available Not Available Narcan 4 mg/actuatio n nasal spray SPRAY 1 DOSE INTO 1 NOSTRIL IN CASE OF OVERDOSE. IF PERSON DOES NOT RESPOND IN 2-3 MINUTES, SPRAY OTHER DOSE INTO OTHER NOSTRIL. active Not Available Not Available No t Available Vraylar 3 mg capsule active Not Available Not Available N ot Available Breztri Aerosphere 160 mcg-9mcg-4. 8mcg/actuat ion HFA aerosol inhaler active Not Available Not Available Not Available Vitals Date Recorded Body weight Body mass index (BMI) Body height Oxygen saturation Oxygen saturation in Arterial blood by Pulse oximetry Heart rate Body temperature Systolic And Diastolic Systolic And Diastolic Provider Name and Address Organization Details Last Updated DateTime 5 33143.5 1 g 23.4 kg/m2 172.72 cm 98 % 98 % 72 /min 98.2 [degF] 150/80 mm[Hg] 148/64 mm[Hg] [employer] 5 13:08:04 Date Recorded Body height Body mass index (BMI) Body weight Body temperature Heart rate Oxygen saturation Oxygen saturation in Arterial blood by Pulse oximetry Systolic And Diastolic Provider Name and Address Organization Details Last Updated DateTime 5 172.72 cm 22.9 kg/m2 05396.7 3 g 98.6 [degF] 98 /min 97 % 97 % 102/66 mm[Hg] [employer] 5 14:16:49 Date Recorded Body height Body mass index (BMI) Body weight Oxygen saturation Oxygen saturation in Arterial blood by Pulse oximetry Heart rate Body temperature Systolic And Diastolic Provider Name and Address Organization Details Last Updated DateTime 5 172.72 cm 22.7 kg/m2 84270.4 2 g 96 % 96 % 70 /min 98.1 [degF] 120/74 mm[Hg] Wanda Johnson [employer] 5 16:35:24 Date Recorded Body height Body mass index (BMI) Body weight Body temperature Oxygen saturation Oxygen saturation in Arterial blood by Pulse oximetry Heart rate Systolic And Diastolic Provider Name and Address Organization Details Last Updated DateTime 5 172.72 cm 23.1 kg/m2 01487.0 4 g 98.7 [degF] 96 % 96 % 86 /min 100/65 mm[Hg] [employer] 5 14:34:32 Date Recorded Body height Body mass index (BMI) Body weight Body temperature Oxygen saturation Oxygen saturation in Arterial blood by Pulse oximetry Heart rate Systolic And Diastolic Provider Name and Address Organization Details Last Updated DateTime 5 172.72 cm 23.1 kg/m2 97130.4 4 g 98.5 [degF] 92 % 92 % 86 /min 118/68 mm[Hg] [employer] 5 13:46:18 Social History Question Answer Notes LastModified by Organization Details LastModified Time Tobacco Smoking Status Current Every Day Smoker SocialHisto ryQuestion: 'Tobacco/Al cohol/Suppl ements'; SocialHisto ryResponse: 'Current Everyday Smoker'; Not Available [facility] 05/08/2022 22:56:27 Do You Have An Advance Directive? No Information not available 12/29/2024 Is Your Home Air Conditioned? Yes Information not available 12/29/2024 If You Are , What Was Your Level Of Alcohol Consumption Prior To ? None Information not available 01/05/2025 Do You Wear A Helmet When Biking? No Information not available 01/05/2025 Are You Blind Or Do You Have Difficulty Seeing? No Information not available 12/29/2024 What Is Your Level Of Caffeine Consumption? Occasional Information not available 12/29/2024 What Type Of Casting Molder Do You Use? None Information not available 01/05/2025 Have You Been To An Area Known To Be High Risk For COVID-19? No Information not available 12/29/2024 Are You Deaf Or Do You Have Serious Difficulty Hearing? No Information not available 12/29/2024 What Type Of Diet Are You Following? REGULAR Information not available 12/29/2024 What Is The Highest Grade Or Level Of School You Have Completed Or The Highest Degree You Have Received? [id number] Information not available 01/05/2025 How Many Days Of Moderate To Strenuous Exercise, Like A Brisk Walk, Did You Do In The Last 7 Days? 1 Information not available 01/05/2025 Have There Been Any Changes To Your Family Or Social Situation? No Information not available 12/29/2024 Are There Any Guns Present In Your Home? No Information not available 01/05/2025 Which Of Your Hands Is Dominant? Right Information not available 12/29/2024 What Is Your Home Situation? Both Parents Information not available 01/05/2025 Do You Have A Medical Power Of Host/Hostess? No Information not available 12/29/2024 What Was The Date Of Your Most Recent Tobacco Screening? 03/26/2025 [email or web address] Information not available 03/26/2025 Do You Have Any Pets? Yes Information not available 12/29/2024 Do You Use Protection During Sex? Always Information not available 01/05/2025 What Is Your Relationship Status? Information not available 12/29/2024 Have You Repeated Any Grades? No Information not available 01/05/2025 Do You Use Your Seat Belt Or Car Seat Routinely? Yes Information not available 12/29/2024 Are You Sexually Active? Yes Information not available 01/05/2025 Do You Have Any Siblings? Yes Information not available 01/05/2025 Do You Have Smoke And Carbon Monoxide Detectors In Your Home? Yes Information not available 12/29/2024 At What Age Did You Start Smoking Tobacco? 13 Information not available 12/29/2024 Are You Passively Exposed To Smoke? Yes Information not available 12/29/2024 Are There Any Smokers In Your House? Yes Information not available 01/05/2025 How Much Tobacco Do You Smoke? 1 PPD Information not available 12/29/2024 Do You Participate In Social Media? Yes Information not available 12/29/2024 Do You Use Sunscreen Routinely? No Information not available 01/05/2025 Has Tobacco Cessation Counseling Been Provided? Yes Information not available 12/29/2024 On What Date Was Tobacco Cessation Counseling Provided? 03/26/2025 [email or web address] Information not available 03/26/2025 How Many Years Have You Smoked Tobacco? 30 Information not available 01/05/2025 Have You Recently Traveled Abroad? No Information not available 12/29/2024 Do You Have Difficulty Walking Or Climbing Stairs? No Information not available 12/29/2024 Are You Currently In School? No Information not available 12/29/2024 What Contraceptive Method Was Reported At Start Of This Visit? Female Sterilization Information not available 01/05/2025 Do You Have Any Dietary Restrictions? No Information not available 12/29/2024 Sex: Unknown Functional Status Question Answer Note LastModified by Organizat ion Details LastModified Time Do you use any illicit or recreational drugs? No Information not available 12/29/2024 Do you or have you ever used any other forms of tobacco or nicotine? No Information not available 12/29/2024 What is your level of alcohol consumption? None Information not available 12/29/2024 Are you currently employed? No Information not available 12/29/2024 Do you have transportation difficulties? No Information not available 12/29/2024 Are you able to walk independently without assistance or assistive devices? YESWOREST Information not available 12/29/2024 Do you have difficulty doing errands alone? No Information not available 12/29/2024 Are you able to care for yourself independently? Yes Information not available 12/29/2024 Do you have difficulty dressing, bathing, grooming, or toileting? No Information not available 12/29/2024 What is your exercise level? Occasional Information not available 01/05/2025 Mental Status Question Answer Note LastModified by Organizat ion Details LastModified Time Do you feel stressed (tense, restless, nervous, or anxious, or unable to sleep at night)? [id number] Information not available 12/29/2024 Do you have difficulty concentrating, remembering or making decisions? No Information no t available 12/29/2024 Are you or have you been involved with bullying? No Information not available 01/05/2025 Family History Relationship Description Onset Age of this Age Resolved Age Notes LastModified by Organization Details LastModified Time Unspecified Relation Family history of Myocardial infarction Relati ve: ''; [email or web address] Not available 05/08/2022 23:03:36 Unspecified Relation Family history of Anxiety state Relati ve: ''; [email or web address] Not available 05/08/2022 23:03:38 Notes:*Procedure Description : Documented family medical history in mother*Relative: Mother *Procedure Description: Documented family medical history in father*Relative: Father *Procedure Description: Documented family medical history in sister*Relative: Sister Medical History Condition Response ADD/ADHD N Anxiety Disorder Y Substance Abuse Y Hospitalizations N Acid Reflux (GERD) Y Emergency room visit since last appointm ent. N Depression Y COPD Y Gynecological History Statement/Question Response Date of LMP 01/28/2025 Menses Monthly N HPV Vaccine N Date of Last Pap Smear Current Control Method Tubal Ligat ion Age at Menarche 13 Most Recent Mammogram LMP Approximate Age at First Child 19 Obstetrics History GPAL:G 3 P 3 0 0 3 Type Value Multiple Births 0 Full Term 3 Induced 0 Spontaneous 0 Premature 0 Living 3 Ectopics 0 Total 3 Immunizations Vaccine Type Date Status Note Provider Nam e and Address Organization Details Recorded Time Influenza, split virus, quadrivalent, preservative 8 completed Not Available [facility] 05/08/2022 22:59:44 Td(adult) unspecified formulation 4 completed Not Available [facility] 03/26/2025 13:36:21 COVID-19, mRNA, LNP-S, bivalent, PF, 50 mcg/0.5 mL or 25mcg/0.25 mL dose 3 completed Not Available [facility] 03/26/2025 13:36:21 Past Encounters Encounter ID Performer Location Encounter Start Date Encounter Closed Date Diagnosis/Indication Diagnosis SNOMED-CT Code Diagnosis ICD10 Code Diagnosis IMO Codes Diagnosis Note [id number] HÉCTOR Lucas [facility] [address] [place] [id number] 12/29/2024 12:44:56 12/29/2024 13:45:37 Screening mammography 60050916 Z12.31 Gynecologi c examination 69517400 Z01.419 Screening for malignant neoplasm of colon 338819231 Z12.11 Dysuria 07338410 R30.0 Acute urin danae tract infection 594303867 N39.0 Essential hypertension 79358074 I10 RTC next week for labs, check BP Steatotic liver disease 864878174 K76.0 reviewed ER records - liver steatosis, possible gallstones /sludge - will order US Long-term drug therapy 626061970 Z79.797 [id number] HÉCTOR Lucas [address] [address] 01/05/2025 14:01:21 01/05/2025 14:42:29 Dysuria 89538166 R30.0 88239 Mixed hyperlipidemia 267 826364 E78.2 12872 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 809089784 J41.8 009480 Gastro-eso phageal reflux disease with esophagitis 185445244 K21.00 2126035297 Localized edema 31076922 4 R60.0 19620 Anxiety 59465730 F41.9 56167 Essential hypertension 59217941 I10 Acute urin danae tract infection 187802117 N39.0 [id number] HÉCTOR Lucas [facility] [address] [place] [id number] 03/01/2025 16:21:00 03/01/2025 17:06:49 Lesion of liver 351652192 K76.9 485113 Acute urin danae tract infection 933831438 N39.0 Pain of mu ltiple joints 18990537 M25.50 065081 [id number] [place] [address] 03/18/2025 13:58:33 03/19/2025 11:03:54 Sensation of blocked ear 175968128 H93.8X2 29514692 [id number] [place] [address] 03/26/2025 13:32:50 03/26/2025 14:51:10 Generalized aches and pains 14020721 R52 470397 Upper resp iratory infection 04529534 J06.9 17793925 Health Concerns Section Related Observation LastModified by Organization Detai ls LastModified Time None Recorded Concern Status LastModified by Organization Details LastModified Time None Recorded Advance Directives Directive N: Payers Insurance Date Sequence Insurance Name Policy Number Policy Tong Covered Member ID Tong Member ID Guarantor Name 06/16/2025 1 [facility] (MEDICAID HMO) Anya Mckeon [id number] Anya Mckeon Notes Date Note Type Note Provider Name and Address Organization Details Recorded Time 12/29/2024 text/html ROS as noted in the HPI Patient c/o dysuria. States that she was in ER 2 weeks ago with flank pain, abdominal pain, dysuria. Treated for UTI but does not feel as if it has completely resolved.Blood pressure is elevated. Has been elevated the past few times she has had it checked. Denies headache, chest pain, vertigo, dyspnea. Has never been treated for HTN previously. HÉCTOR Lucas [address] [place] [address], [phone], [facility] [employer] 12/29/2024 16:06:08 01/05/2025 text/html ROS as noted in the HPI Patient states that she is still having dysuria. Now having flank pain, nausea, body aches. Does not think that she has had a fever. No vomiting. No diarrhea. Took Levaquin, but feels even worse. Seen in ER last week x 3 - had normal CT but feels worse instead of better. Urine culture grew Klebsiella. SHould have responded to Levaquin, but still symptomatic. HÉCTOR Lucas [address] [place], [address], [employer] 01/05/2025 14:51:30 03/01/2025 text/html ROS as noted in the HPI Patient presents for followup. States that liver lesions have been noted on her imaging studies multiple times in the past and she would like to have a referral for a liver biopsy so that she can see definitively what they are. She states her last imaging study was done last fall. She did not keep appointment for liver US or liver MRI. HÉCTOR Lucas [address] [place], [address], [employer] 03/02/2025 09:48:19 03/18/2025 text/html ROS as noted in the HPI Presents today with concerns for 2 days of feeling bad and my ear feeling weird . Denies ear pain, however states for the last couple of days her left ear feels weird, not hurting, but like there is something inside . Denies fever, chills, congestion, nasal drainage, coughing, sneezing, headache, diarrhea, vomiting, and diarrhea. 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 ERICKA TRIMBLE NP [address] [place], [address], [employer] 03/18/2025 17:19:25 03/26/2025 text/html ROS as noted in the HPI Presents today with 3 day history of cough and chest congestion. Denies fever, but endorses body aches and occasional chills. Has been taking flonase daily, as well as ibuprofen once or twice for body aches. Denies sick contacts. no N/V/D. ERICKA TRIMBLE NP [address] [place], [address], [employer] 03/26/2025 14:34:28 OBGyn Episode No OBEpisode recorded.
--- OUTSIDE RECORDS SUMMARY | 2025-06-17 21:30 | XMS_ITS | Clinical Summary ---
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 Not on file Does Anyone Keep You from Co ntacting Others or Doint Things Outside the Home? Not on file 04/14/2024 Physical Sign of Abuse Present Not on file 0 04/14/2024 Housing Stability Answer Date Recorded Current Living Arrangements Not on file 04/02 Potentially Unsafe Housing Conditions Not on meggan e 04/14/2024 Family and Community Support Answer Kirill e Recorded Help with Day-to-Day Activities Not on file 04/14/2024 Lonely or Isolated Not on file 04/14/2024 Employment Answer Date Recorded Do you want help finding or keeping work or a tony b? Not on file 04/14/2024 Disabilities Answer Date Recorded Concentrating, Remembering, or Making Decisions Difficulty Not on file 04/14/2024 Doing Errands Independently Difficulty Not on fi le 04/14/2024 Education Answer Date Recorded Help with school or training? Not on file Preferred Language Not on file 04/14/2024 Comments No Sex and Gender Information Value Date Recorded Sex Assigned at Not on file Legal Sex Female 5:43 PM EDT Gender Identity Not on file Sexual Orientation Not on file Last Filed Vital Signs Vital Sign Reading Time Taken Comments Blood Pressure 187/126 04/14/2024 5:43 PM EDT Pulse 106 04/14/2024 5:43 PM EDT Temperature 36.7 C (98 F) 04/14/2024 5:43 PM EDT Respiratory Rate 22 04/14/2024 5:43 PM EDT Oxygen Saturation 96% 04/14/2024 5:43 PM EDT Inhaled Oxygen Concentration - - Weight 71.7 kg (158 lb) 04/14/2024 5:43 PM EDT Height 172.7 cm (5' 8 ) 04/14/2024 5:43 PM EDT Body Mass Index 24.02 04/14/2024 5:43 PM EDT Plan of Treatment Health Maintenance Due Date Last Done Comments ANNUAL PHYSICAL 1975 Annual Gynecologic Pelvic an d Breast Exam 1975 HEPATITIS C SCREENING 1976 TDAP/TD VACCINES (1 - Tdap) 07/06/2014 07/05/2014 MAMMOGRAM 2016 COLOGUARD 01/29/2021 COLON CANCER SCREENING 5 YEA R SIGMOIDOSCOPY 01/29/2021 COLONOSCOPY 01/29/2021 COLORECTAL CANCER SCREENING 01/29/2021 CT COLONOGRAPHY 01/29/2021 FECAL OCCULT BLOOD TEST 01/29/2021 FIT Testing (1 year) 01/29/2021 INFLUENZA VACCINE 04/02/2025 06/21/2018 Pneumococcal Vaccine 0-49 Aged Out No longer eligible based on patient's age to complete this topic Insurance Care Teams Snowblower Mechanic Relationship Specialty Start Date End Date Provider, No Known [facility] [place] [address] PCP - General 04/14/24
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
--- NOTE | 2025-06-17 22:44 | ECG_ITS ---
APPROVED REPORT Exam: Resting ECG HR:121 bpm ECG Measurements Heart Rate 121 AXES MA 129 P 62 QRSd 80 QRS 79 QT 308 T 58 QTc 380 Conclusion Sinus tachycardia without acute ST or T wave changes concerning for ischemia Electronically signed by : Carole Abarca, 06/18/2025 22:50:07
[2025-06-17] MEDS: ONDANSETRON 4MG/2ML VIAL 4 MG IV (22:47)
[2025-06-17] MEDS: LACTATED RINGERS 1000ML 1,000 ML 999 ML IV (22:47)
[2025-06-17 23:13] LABS: Hematocrit 30.2 % (37.0-47.0); Hemoglobin 10.3 g/dL (12.2-16.2); Immature Granulocytes % 0.5 %; Mean Corpuscular HGB Conc 34.1 g/dL (31.8-35.4); Mean Corpuscular Hemoglobin 28.1 pg (27.0-31.2); Mean Corpuscular Volume 82.5 fl (81-99); Nucleated Red Blood Cells % 0 %; Platelet Count 160 K/mm3 (142-424); Red Blood Count 3.66 M/mm3 (4.20-5.40); Red Cell Distribution Width-SD 42.8 fL; White Blood Count 12.0 K/mm3 (4.8-10.8)
[2025-06-17 23:24] LABS: Alanine Aminotransferase 16 U/L (12-78); Albumin Level 3.2 g/dl (3.5-5.0); Albumin/Globulin Ratio 0.9 (1.1-1.8); Alkaline Phosphatase 168 U/L (38-126); Anion Gap 14.7 mEq/L (5-15); Aspartate Amino Transferase 31 U/L (14-36); Bilirubin,Total 0.4 mg/dl (0.2-1.3); Blood Urea Nitrogen 25 mg/dl (7-17); Calcium 8.1 mg/dl (8.4-10.2); Carbon Dioxide 23 mmol/L (22.0-30.0); Chloride 101 mmol/L (98-107); Creatine Kinase < 20 U/L (30-135); Creatinine Clearance Estimated 62 mL/min (50-200); Creatinine,Serum 1.10 mg/dl (0.52-1.04); Estimated Glomerular Filt Rate 53 ml/min (>60); GFR (African American) 64 ML/MIN (>60); Globulin 3.4 g/dL (1.3-3.2); Glucose 147 mg/dl (74-100); Lipase 38 U/L (23-300); Magnesium 1.2 mg/dl (1.6-2.3); Phosphorous 2.8 mg/dl (2.5-4.5); Potassium 3.7 mmoL/L (3.5-5.1); Sodium 135 mmol/L (136-145); Total Protein,Serum 6.6 g/dl (6.3-8.2)
[2025-06-17 23:36] LABS: Troponin I < 0.01 ng/ml (0.00-0.034)
[2025-06-17 23:43] LABS: Anisocytosis 1+; Macrocytosis 1+; Ovalocytes 1+; Poikilocytosis 1+; Tear Drop Cells 1+; Total Cells Counted 100
[2025-06-17 23:44] LABS: Microcytosis 1+; Target Cells 1+
== END 2025-06-17 23:57 | disposition left against medical advice (07) ==
PROVIDERS: Emergency Provider Student in an Organized Health Care Education/Training Program
DX: R10.84 Generalized abdominal pain (principal); R07.9 Chest pain, unspecified; R00.0 Tachycardia, unspecified; R51.9 Headache, unspecified; E83.42 Hypomagnesemia; R11.2 Nausea with vomiting, unspecified; N17.9 Acute kidney failure, unspecified; F11.90 Opioid use, unspecified, uncomplicated; F17.210 Nicotine dependence, cigarettes, uncomplicated
CPT/HCPCS: 80053; 82550; 83690; 83735; 84100; 84484; 85007; 85025; 93005; 96361; 96365; 96374; 99284; J2405; J7120